=== PATIENT | female | born 1965 | race Caucasian/White ===

== ENCOUNTER 2018-08-25 23:36 | Emergency (ER) | payer OTHER, SELFPAY ==
[2018-08-25 23:37] VITALS: BP 123/69; PULSE 76; RESP 14; TEMP 36.4; O2SAT 98; BMI 27.2
--- NOTE | 2018-08-25 23:59 | EKG12_ITS ---
Test Reason : [place] Blood Pressure : / mmHG Vent. Rate : 059 BPM Atrial Rate : 059 BPM P-R Int : 152 ms QRS Dur : 090 ms QT Int : 426 ms P-R-T Axes : -02 -10 -03 degrees QTc Int : 421 ms Sinus bradycardia Minimal voltage criteria for LVH, may be normal variant Borderline ECG Confirmed by ARAVIND RIDER, JENA ([id number]), script editor TERRY DE SOUZA ([id number]) on 08/30/2018 10:37:33 AM Referred By: LEXIE Confirmed By:JENA NAZARIO MD
[2018-08-26] VITALS (15 sets, daily range): BP systolic 114–130; BP diastolic 60–80; PULSE 54–108; RESP 14–24; O2SAT 95–100
--- NOTE | 2018-08-26 00:01 | RAD_ITS ---
STUDY: X-RAY CHEST REASON FOR EXAM: Female, 52 years old. Palpitations TECHNIQUE: Single AP portable view of the chest. COMPARISON: None. FINDINGS: The lungs are clear and expanded. There is no demonstrated pleural abnormality. Normal size heart. Normal mediastinum and yong. Normal visualized pulmonary arteries. Normal visualized aortic arch and descending thoracic aorta. Normal visualized thoracic spine. Normal visualized ribs, clavicles, and shoulders. There is no demonstrated abnormality of the visualized soft tissue structures of the upper abdomen. RAD/Chest 1 View (Portable) IMPRESSION: Normal x-ray examination of the chest. Electronically Signed: Gwen Lehman MD at 1:07 EST Tel , Service support ,
[2018-08-26 00:14] LABS: Absolute Lymphocyte Count 1.69 X10^3/ul (0.83-4.51); Absolute Neutrophil Count 6.4 X10^3/uL (2.0-7.7); Basophil# 0.04 X10^3/uL; Basophil% 0.4 % (0-1); Eosinophil# 0.12 X10^3/uL; Eosinophils% 1.3 % (0-5); Hematocrit 45.4 % (37-47); Lymphocyte # 1.69 X10^3/ul (4.0); Lymphocyte % 18.8 % (19-41); Mean Corp Hgb Conc 35.2 g/gl (32-36); Mean Corpuscular Hgb 29.5 pg (27.0-32.0); Mean Corpuscular Volume 83.6 fL (81-99); Monocyte# 0.62 X10^3/uL; Monocyte% 6.9 % (0-10); Neutrophil # 6.41 X10^3/uL (2.7-7.7); Neutrophil % 71.6 % (47-70); Platelet Count 285 K/mm3 (150-450); RBC Distribution Width CV 12.4 % (11.6-14.6); RBC Distribution Width SD 37.4 fl (35.1-43.9); Red Blood Count 5.43 M/mm3 (4.2-5.4)
[2018-08-26 00:18] LABS: POSITIVE COUNT NO; POSITIVE DIFFERENTIAL NO; POSITIVE MORPHOLOGY NO
[2018-08-26 00:38] LABS: Anion Gap 9 (5-15); BUN 10 mg/dL (7-18); BUN/Creat Ratio 13.2 RATIO (10-20); Calcium,Total 9.2 mg/dL (8.5-10.1); Chloride 106 mmol/L (98-107); Creatinine, Serum 0.76 mg/dL (0.55-1.02); EST Glomerular Filtration Rate 86 mL/min (>60); Est Glom Filt Rate - Afr Amer 104 mL/min (>60); Estimated Creatinine Clearance 70.04 ml/min; Glucose 108 mg/dL (74-106); Potassium 3.5 mmol/L (3.5-5.1); Sodium Level 138 mmol/L (136-145); Thyroid Stim Hormone (TSH) 3.45 uIU/mL (0.358-3.74)
[2018-08-26 00:50] LABS: Amphetamine Urine VISTA NEGATIVE (<1000 ng/mL); Barbiturate Urine VISTA NEGATIVE (< 200 ng/mL); Benzodiazepine Urine VISTA NEGATIVE (< 200 ng/mL); Cocaine Urine VISTA NEGATIVE (< 300 ng/mL); Ecstacy Urine VISTA NEGATIVE (< 500 ng/mL); Methadone Urine VISTA NEGATIVE (< 300 ng/mL); PCP Urine VISTA NEGATIVE (< 25 ng/mL); THC Urine VISTA NEGATIVE (< 50 ng/mL); Vista UDS pH Range 6
--- NOTE | 2018-08-26 01:35 | ED.RN ---
DR OWEN INFORMED THIS NURSE THAT THE PT DOES HAVE S.I. PLAN TO TAKE ALL HER PILLS AT HOME. SINCE THE PT IS RECEIVING HELP DR OWEN AND THE COUNSELOR FROM THE COUNSELING CENTER DO NOT FEEL THE PATIENT NEEDS A SITTER IN THE ER AT THIS TIME.
--- NOTE | 2018-08-26 01:36 | ED.VISSUMM ---
- ER Visit Summary Date of Service: 08/26/18 Chief Complaint: Anxiety History of Present Illness: The patient is a 52 F who reports getting hot flashes and episodes of tachycardia since June. She rapidly tapered and stopped her Prozac at that time. She has been seen by cardiology multiple times and been seen at [facility] and by her primary care physician. She was started on metoprolol but states the medicine makes her feel crappy. She has been continuing to take it. She was recently restarted on an SSRI, but feels anxious and just wants to feel normal. She admits to suicidal ideation this morning but denied to me currently. Patient has had extensive cardiac workups performed through [facility]. Physical Examination: Vital signs unremarkable. Heart rate is 76. Patient sitting upright in bed. She is anxious and slightly disheveled. Head and neck examination unremarkable. Heart is regular rate and rhythm. Lungs sounds are clear. Abdomen is soft and nontender. Psychiatric evaluation does reveal slightly pressured speech. She denied suicidal ideation to me but does admit to earlier today. Test Results: EKG is sinus at 59 with no sign of acute ischemia. Portable chest x-ray normal. CBC significant only for hemoglobin of 16.0. Chemistry studies normal. Troponin and TSH normal. Tox and EtOH are normal. Emergency Department Course and Treatment: I spoke with Esther from the counseling center. She evaluated the patient. Patient made statements to her that she does have a plan to harm herself and states that she will take all of her medications if this continues and she does not get help. I was able to use [employer] to review the records from [facility]. I have reviewed at least 5 different visits from their emergency room in the last 5 months. Multiple visits were made with complaint of palpitation and anxiety. The highest heart rate that was documented on any visit was 116 and felt to be sinus tach secondary to her anxiety. She has had carotid studies done as well as an echocardiogram that were also reviewed. Patient was seen by Esther from the counseling center. Patient makes statements to her that she does have a plan to kill herself with the intent to take a bunch of her pills at home. Attempts are being made to get the patient placed for treatment. At this time we are waiting to hear back for insurance approval for [employer]. Treatment Plan: [] Disposition: Transfer Impression: 1. Anxiety 2. Suicidal ideation This note was generated with [employer] dictation software. It may contain incorrect words, spelling, and punctuation that were not noted in review of the chart prior to signing ED Disposition - Plan for ED Patient: Referrals: Bryson Sandhu MD [Primary Care Provider] -
--- NOTE | 2018-08-26 01:39 | ED.DCSUM_ITS ---
- ER Visit Summary Date of Service: 08/26/18 Chief Complaint: Anxiety History of Present Illness: The patient is a 52 F who reports getting hot flashes and episodes of tachycardia since June. She rapidly tapered and stopped her Prozac at that time. She has been seen by cardiology multiple times and been seen at [facility] and by her primary care physician. She was started on metoprolol but states the medicine makes her feel crappy. She has been continuing to take it. She was recently restarted on an SSRI, but feels anxious and just wants to feel normal. She admits to suicidal ideation this morning but denied to me currently. Patient has had extensive cardiac workups performed through [facility]. Physical Examination: Vital signs unremarkable. Heart rate is 76. Patient sitting upright in bed. She is anxious and slightly disheveled. Head and neck examination unremarkable. Heart is regular rate and rhythm. Lungs sounds are clear. Abdomen is soft and nontender. Psychiatric evaluation does reveal slightly pressured speech. She denied suicidal ideation to me but does admit to earlier today. Test Results: EKG is sinus at 59 with no sign of acute ischemia. Portable chest x-ray normal. CBC significant only for hemoglobin of 16.0. Chemistry studies normal. Troponin and TSH normal. Tox and EtOH are normal. Emergency Department Course and Treatment: I spoke with Esther from the counseling center. She evaluated the patient. Patient made statements to her that she does have a plan to harm herself and states that she will take all of her medications if this continues and she does not get help. I was able to use [facility] [employer] [facility] to review the records from [facility]. I have reviewed at least 5 different visits from their emergency room in the last 5 months. Multiple visits were made with complaint of palpitation and anxiety. The highest heart rate that was documented on any visit was 116 and felt to be sinus tach secondary to her anxiety. She has had carotid studies done as well as an echocardiogram that were also reviewed. Patient was seen by Esther from the counseling center. Patient makes statements to her that she does have a plan to kill herself with the intent to take a bunch of her pills at home. Attempts are being made to get the patient placed for treatment. At this time we are waiting to hear back for insurance approval for [employer]. Treatment Plan: [] Disposition: Transfer Impression: 1. Anxiety 2. Suicidal ideation This note was generated with [employer] dictation software. It may contain incorrect words, spelling, and punctuation that were not noted in review of the chart prior to signing ED Disposition - Plan for ED Patient: Referrals: Bryson Sandhu MD [Primary Care Provider] -
--- NOTE | 2018-08-26 01:57 | ED.RN ---
PT C/O ABD PAIN AND NAUSEA. PT DECLINING ANY TYPE OF MEDICATION FOR SYMPTOMS. DR OWEN NOTIFIED OF THE SAME
[2018-08-26] MEDS: Metoprolol Tartrate 25 MG Tablet PO (10:26)
--- NOTE | 2018-08-26 11:24 | ED.RN ---
RAVEN WITH CRISIS CALLED; PT HAS BEEN ACCEPTED FROM [facility]; BUT SHE HAS TO DEAL WITH A CRISIS PT AT HER OFFICE FIRST AND THEN SHE WILL CALL [facility].
--- NOTE | 2018-08-26 11:30 | CM.ED ---
SOCIAL WORK NOTE UPDATED BY NURSING, PT HAS BEEN EVALUATED BY CRISIS AND PLAN IS FOR PLACEMENT. RAVEN FROM CRISIS WORKING ON PLACEMENT AT THIS TIME. SHIVANI JARAMILLO, MINES INSPECTOR, MEN'S SWIM COACH.
--- NOTE | 2018-08-26 12:19 | ED.RN ---
[facility] ACCEPTED PT. THEY WILL CALL US SOON
--- NOTE | 2018-08-26 15:19 | ED.RN ---
PER RAVEN WE ARE WAITING FOR A ROOM AT [facility] [place]
--- NOTE | 2018-08-26 15:52 | ED.RN ---
called report to kapil.
== END 2018-08-26 17:22 ==
PROVIDERS: Emergency Provider Emergency Medicine; Family Provider Family Medicine; PCP Family Medicine
DX: R45.851 Suicidal ideations (principal); F41.9 Anxiety disorder, unspecified; I25.10 Atherosclerotic heart disease of native coronary artery without angina pectoris; Z79.899 Other long term (current) drug therapy
CPT/HCPCS: 71045; 80048; 80307; 80320; 84443; 84484; 85025; 93005; 99285; G0480

== ENCOUNTER → 2018-09-19 16:45 | Outpatient (CLI) | payer OTHER, SELFPAY ==
[2018-08-25 23:37] VITALS: BMI 27.2
--- NOTE | 2018-09-19 17:03 | MRI_ITS ---
STUDY: MRI BRAIN WITHOUT CONTRAST REASON FOR EXAM: Female, 52 years old. Dizziness TECHNIQUE: Standardized multiplanar fat and water weighted pulse sequences were obtained. COMPARISON: None. FINDINGS: The pituitary and pineal regions are normal. The brainstem is normal. The corpus callosum is normal. The 7th and 8th nerve complexes are normal. Both cerebellopontine angles are clear. The cerebellar vermis and lobes are normal. The ventricles, basal cisterns and cortical sulci are normal with no midline shift and no intra or extra-axial hemorrhage or tumor mass. There is no acute infarction. The calvarium is intact. There are no scalp swelling. The vessels at the base of the brain are normal. The orbits, paranasal sinuses and mastoid air cells are normal.. MRI/Brain without Contrast IMPRESSION: Normal unenhanced MRI of the brain. Electronically Signed: Hernando Candelario MD at 4:29 EDT Tel , Service support ,
== END ==
PROVIDERS: Family Provider Family Medicine; PCP Family Medicine; Referring Provider Otolaryngology; Visit Provider Otolaryngology
DX: R42 Dizziness and giddiness (principal)
CPT/HCPCS: 70551

== ENCOUNTER 2018-11-15 09:12 | Emergency (ER) | payer OTHER, SELFPAY ==
[2018-11-15 09:13] VITALS: BP 146/77; PULSE 87; RESP 18; TEMP 36.9; O2SAT 100; BMI 27.4
--- NOTE | 2018-11-15 09:31 | EKG12_ITS ---
Test Reason : CP/PALPS Blood Pressure : / mmHG Vent. Rate : 095 BPM Atrial Rate : 095 BPM P-R Int : 160 ms QRS Dur : 084 ms QT Int : 350 ms P-R-T Axes : 044 -14 020 degrees QTc Int : 439 ms Normal sinus rhythm with sinus arrhythmia Nonspecific ST abnormality Abnormal ECG Confirmed by CALVIN ROSE ([id number]), production editor TERRY GOSS ([id number]) on 11/18/2018 11:08:46 AM Referred By: BAM Confirmed By:CALVIN ROSE
--- NOTE | 2018-11-15 09:36 | ED.DCSUM_ITS ---
- ER Visit Summary Date of Service: 11/15/18 Chief Complaint: [Chest pain and palpitations] History of Present Illness: The patient is a 52 F [presents to the emergency department with complaint of tachycardia this morning. Patient states that she was in the shower and noted that her heart rate was over 140. Patient's been having intermittent chest discomfort over the last 2 weeks. She is been having intermittent palpitations. 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 Patient had a tilt table test ordered by her neurologist about a month ago and was relatively unremarkable. Patient has history of high cholesterol, anxiety, migraines, and depression. Patient has been under increased stress. When patient has the tachycardia she complains of nausea and shortness of breath. Patient had seen years ago a ems coordinator and at that time had been on verapamil but when she lost her insurance was unable to afford it and stopped taking it. Patient had been on metoprolol but it caused her to not feel well and increase her depression therefore she stopped taking it. She denies any chest pain currently. Patient denies recent travel or surgery. Patient denies recent illness. Patient is scheduled to see Dr. Olvin Painting later this week for a second opinion.] Physical Examination: [HEENT-PERRLA, EOMI. Cranial nerves II through XII grossly intact. TMs clear. Mucous membranes moist. No adenopathy. Cardiovascular-regular rate and rhythm without murmur or ectopy Lungs-clear to auscultation, chest wall stable without crepitus or subcu emphysema Abdomen-normoactive bowel sounds, soft, nontender, no rebound or rigidity, no peritoneal signs. Extremities-intact ?4, normal range of motion, normal pulses, atraumatic] Test Results: [EKG obtained on arrival shows sinus rhythm with a ventricular rate of 95 bpm with PACs and some nonspecific ST changes. CBC with differential is normal. Chemistries unremarkable other than a slightly depressed potassium at 3.4. Magnesium was 2.0. TSH was 2.09. D-dimer was 0.32. Troponin is less than 0.015. Chest x-ray unremarkable.] Emergency Department Course and Treatment: [Patient received a normal saline in the emergency department initially. Received aspirin.] Treatment Plan: [Discussed results with patient and she is feeling better about her visit. Patient has a scheduled appointment with cardiology next week and she would like to keep that and does not want to be admitted. I feel like her chest pain is very atypical and is been ongoing for at least 4 months and related to her palpitations. Her LYRIC risk score is a 0. I feel patient can keep her cardiology appointment and follow-up as an outpatient.] Disposition: [Discharged home in stable condition] Impression: [Atypical chest pain Palpitations] This note was generated with [employer] dictation software. It may contain incorrect words, spelling, and punctuation that were not noted in review of the chart prior to signing ED Disposition - Plan for ED Patient: Referrals: Bryson Sandhu MD [Primary Care Provider] -
--- NOTE | 2018-11-15 09:45 | RAD_ITS ---
STUDY: X-RAY CHEST REASON FOR EXAM: Female, 52 years old. Chest pain. TECHNIQUE: Single AP portable view of the chest. COMPARISON: Comparison is made with prior study dated August 26, 2018. FINDINGS: EKG electrodes are seen. The lungs are clear and expanded. There is no demonstrated pleural abnormality. Normal size heart. Normal mediastinum and yong. Normal visualized pulmonary arteries. Normal visualized aortic arch and descending thoracic aorta. Normal visualized thoracic spine. Normal visualized ribs, clavicles, and shoulders. There is no demonstrated abnormality of the visualized soft tissue structures of the upper abdomen. RAD/Chest 1 View (Portable) IMPRESSION: Normal x-ray examination of the chest. Electronically Signed: Geoffrey Joy, at 10:45 EDT , Service support ,
[2018-11-15 09:56] LABS: Absolute Lymphocyte Count 1.45 X10^3/ul (0.83-4.51); Absolute Neutrophil Count 3.9 X10^3/uL (2.0-7.7); Basophil# 0.03 X10^3/uL; Basophil% 0.5 % (0-1); Eosinophil# 0.14 X10^3/uL; Eosinophils% 2.2 % (0-5); Hematocrit 46.8 % (37-47); Hemoglobin 16.3 g/dl (12.0-15.0); Lymphocyte # 1.45 X10^3/ul (4.0); Lymphocyte % 22.9 % (19-41); Mean Corp Hgb Conc 34.8 g/gl (32-36); Mean Corpuscular Hgb 29.5 pg (27.0-32.0); Mean Corpuscular Volume 84.6 fL (81-99); Mean Platelet Vol. 9.6 fl (6.2-12.0); Monocyte# 0.74 X10^3/uL; Monocyte% 11.7 % (0-10); Neutrophil # 3.92 X10^3/uL (2.7-7.7); Neutrophil % 61.9 % (47-70); Platelet Count 254 K/mm3 (150-450); RBC Distribution Width CV 12.8 % (11.6-14.6); RBC Distribution Width SD 39.7 fl (35.1-43.9); Red Blood Count 5.53 M/mm3 (4.2-5.4); White Blood Count 6.3 K/mm3 (4.4-11.0)
[2018-11-15 09:57] LABS: POSITIVE COUNT NO; POSITIVE DIFFERENTIAL NO; POSITIVE MORPHOLOGY NO
[2018-11-15 10:10] LABS: D-Dimer Quantitative (DVT/PE) 0.32 FEU/ug/m (0.27-0.49)
[2018-11-15] MEDS: Aspirin 81 MG TAB.CHEW 324 MG PO (10:10)
[2018-11-15] MEDS: 0.9% Normal Saline 1,000 ML 150 ML IV (10:10)
[2018-11-15 10:14] VITALS: BP 132/69; PULSE 77; RESP 19; O2SAT 97; O2SAT 98
[2018-11-15 10:16] VITALS: BP 129/84; BP 132/69; BP 134/86; PULSE 71; PULSE 80; PULSE 97
[2018-11-15 10:16] LABS: Anion Gap 3 (5-15); BUN 14 mg/dL (7-18); BUN/Creat Ratio 20.1 RATIO (10-20); Calcium,Total 9.2 mg/dL (8.5-10.1); Chloride 107 mmol/L (98-107); EST Glomerular Filtration Rate 94 mL/min (>60); Est Glom Filt Rate - Afr Amer 114 mL/min (>60); Estimated Creatinine Clearance 76.04 ml/min; Glucose 107 mg/dL (74-106); Potassium 3.4 mmol/L (3.5-5.1); Sodium Level 138 mmol/L (136-145); Thyroid Stim Hormone (TSH) 2.09 uIU/mL (0.358-3.74)
--- NOTE | 2018-11-15 10:34 | ED.DEP ---
ED Disposition - Plan for ED Patient: Instructions: ED Chest Pain Atypical Unkn Cause, ED Palpitations Referrals: Bryson Sandhu MD [Primary Care Provider] - Olvin Painting MD [STAFF PHYSICIAN] - 3-5 Days
[2018-11-15 10:37] VITALS: BP 137/85; PULSE 68; RESP 17; O2SAT 98
== END 2018-11-15 11:01 | disposition home or self-care (01) ==
LOC: ED 09:40
PROVIDERS: Emergency Provider Emergency Medicine; Family Provider Family Medicine; PCP Family Medicine
DX: R07.89 Other chest pain (principal); R00.2 Palpitations
CPT/HCPCS: 71045; 80048; 83735; 84443; 84484; 85025; 85379; 93005; 99285; J7030

== ENCOUNTER 2018-12-06 09:00 | Outpatient (RCR) | payer SELFPAY ==
[2018-11-18 11:54] VITALS: BMI 25.2
--- NOTE | 2018-12-06 09:10 | BH.SGPN.GN ---
Behaviors/Verbalizations/Mental Status: [] Eye contact is good. Motor activity is appropriate. Appearance is disheveled. Speech is Appropriate. Mood is anxious. Affect is congruent. Restless Thoughts are linear and logical. No evidence of psychosis. Reviewed daily check in sheet and no reports of suicidal ideations or intent Client Response/Progress/Benefit: [] Pt spoke when prompted. Today was pt's first day in IOP and was visibly anxious AEB by restlessness. Shared with the group that she has a hx of Depression and anxiety. Stated that her goal for entering IOP to to learn how to live again. Discussed the impact that anxiety has had on her day to day functioning and how it eventually led to quitting her job. Group provided support and encouragement. No progress noted today. Will continue in IOP to improve daily functioning, decrease panic and anxiety, and prevent decompensation. Narrative Note: []
--- NOTE | 2018-12-06 10:15 | BH.SGPN.GN ---
Behaviors/Verbalizations/Mental Status: []Pt eye contact good, casually dressed, motor activity appropriate, speech normal rate and tone, mood anxious and depressed, tearful at times, congruent affect, thoughts linear and intact, no evidence of delusions or hallucinations. Client Response/Progress/Benefit: []Client was engaged in group discussion at times and listened attentively to others. Client connected with the topic and able to identify common barriers that keep people stuck from moving forward. Client identified her current reality which client described as feeling like her anxiety and depression consume her life. Client stated her anxiety and depression impact every part of my life. Stated she feels like she doesn't have control in her life. Client able to identify his personal resilience factors in her current reality such as attending therapy and having hope things can get better. Client shared her realistic, desired reality would be having increased coping skills to manage stressors, improved mood, and feeling more in control of her life. Benefited from group as client was able to identify current mental health state, resilience factors, and desired reality. Narrative Note: []
--- NOTE | 2018-12-06 11:17 | BH.SGPN.GN ---
Behaviors/Verbalizations/Mental Status: []Pt eye contact good, casually dressed, motor activity appropriate, speech normal rate and tone, mood anxious and depressed, congruent affect, thoughts linear and intact, no evidence of delusions or hallucinations. Client Response/Progress/Benefit: []Pt was a semi-active participant in group as evidenced by pt contributing at times to discussion and engaged in activity. Pt identified health anxiety, no motivation, worries about , and difficulty setting boundaries as current barriers that are keeping her from desired reality. Through experiential activity group then worked together to develop strategies to overcome various obstacles such as; reframing, reviewing positives, healthy distractions, small goals, recognizing progress, setting boundaries, adjusting expectations, and many more. Pt identified a small goal to help her get closer to desired reality is to take her medications daily and practice deep breathing. Pt seemed to benefit from increased awareness of barriers and group brainstorming healthy strategies to overcome barriers. No progress noted given today is pt's first day in IOP. Narrative Note: []
--- NOTE | 2018-12-08 09:03 | BH.SGPN.GN ---
Behaviors/Verbalizations/Mental Status: []Pt eye contact good, disheveled in appearance, motor activity restless, speech normal rate and tone, mood anxious and depressed, constricted affect, thoughts linear and intact, no evidence of delusions or hallucinations. Reviewed daily check in sheet and no reports of suicidal ideations or intent. Client Response/Progress/Benefit: []Pt was an participant in group discussion AEB pt sharing thoughts, providing feedback to others and listened attentively to peers. Emotion for today is anxious and agitated. Pt identified one mental health positive was spending time with her daughter outside. Pt identified a second mental health positive as being able to use breathing skills and positive self-talk to manage a panic attack she had last night. Pt stated last night was the first time she was able to manage the panic attack without the support of her or going to the emergency room. Pt reported she has several stressors with finding out a young girl in her community yesterday and having insurance issues. Progress noted in pt being willing to challenge her negative perspective and using healthy coping to manage her panic attack. Continued IOP tx recommended to increase utilization of healthy skills, prevent decompensation, and challenge distorted thought patterns. Narrative Note: []
--- NOTE | 2018-12-08 10:05 | BH.SGPN.GN ---
Behaviors/Verbalizations/Mental Status: [Pt alert and oriented, eye contact good, casually dressed, motor activity appropriate, speech normal rate and tone, mood anxious, dysthymic, congruent affect, thoughts linear and intact, no evidence of delusions or hallucinations.] Client Response/Progress/Benefit: [Client engaged participant as shown by contribution to discussion and helpful insight. Client participated in the discussion of the common myths about self-care including self-care is selfish, easy, makes us weak, and always fun. Client worked with group to debunk the myths about self-care. Client stated she believes self-care is essential in order to ?learn to forgive yourself like you forgive others? and increase self-compassions. Shared wanting to improve in self-care application but struggles with prioritizing it or believing she deserves it. Client seemed to benefit from increased awareness of the importance of self-care. Client showing progress as shown by continued increase in consistent use of thought challenging and calming skills. Pt will continue tx to identify and challenge distorted thoughts, increase healthy change behaviors, and prevent decompensation.] Narrative Note: []
--- NOTE | 2018-12-08 11:15 | BH.SGPN.GN ---
Behaviors/Verbalizations/Mental Status: []Client alert and oriented, casually dressed and groomed. Eye contact good. Motor activity appropriate. Speech within normal limits. Affect constricted, mood anxious. Thoughts linear, logical, no signs of hallucinations or delusions. Client Response/Progress/Benefit: []Client responded well to session, positive contributions. Client further processed the activity and shared ?you can?t drop all your responsibilities, but you need balance.? Client engaged in the discussion and self-assessment of the different areas of self-care. Client reported she can improve in areas of professional, social, and emotional self-care. Client shared in the past she has overloaded herself which led to burnout. Client reports belief that she is doing well in physical and psychological self-care. Client set a goal to improve her personal social self-care. Client?s goal is to schedule a date with a friend once this week. Client appeared to benefit from increasing awareness of how she can improve her self-care balance. Client?s first week of IOP. Client to continue to prevent decompensation and reduce anxiety.
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
--- NOTE | 2018-12-09 13:04 | BH.DR.ITP ---
Initial Treatment Plan - Patient Information Visit Information: ADMISSION DATE: EXPECTED LOS: 4-6 weeks Diagnoses:: Depression unspecified; anxiety disorder unspecified; somatic symptom disorder - Problems/Symptoms Problem #1:: depression Symptom:: low mood; hopelessness, tearfulness Problem #2:: anxiety Symptom:: overwhelmed by stress, health fears, panic symptoms Problem #3:: somatic symptom disorder Symptom:: obsessing over health worries, fear of dying; high level of anxiety about health
--- NOTE | 2018-12-09 13:31 | BH.MTP_ITS ---
Master Treatment Plan - Patient Information Program Physician:: Ian Ford Primary Therapist:: Sarah Brantley - Psychiatric Diagnoses Psychiatric Diagnoses:: Depressive disorder unspecified F33.9; anxiety disorder unspecified; somatic symptom disorder F45.1 Diagnosis Code(s):: F33.9; F45.1 - Estimated LOS Estimated LOS (in weeks):: 6 Problem/Goal #1 - Problem/Goal #1 Stated Goal:: Client will decrease depressive symptoms, isolation, and crying spells. Description of Barriers: Client reports her knowledge of the medical field is a strength and a weakness as it reinforces intrusive thoughts and worries about somatic symptoms. Additional barriers include: hopelessness, multiple medication trials, unable to take antidepressants due to her heart condition per client's report, isolative behaviors, reassurance seeking behaviors, and anger with her situation which is to be expected. Functional Impact: Client is a 53-year-old female with a history of anxiety and depression. Client reports ongoing difficulty managing her anxiety symptoms, especially regarding health conditions, which has resulted in impaired daily functioning. Client had a hospitalization in July 2018 at [facility] in [place] due to worsening symptoms. Client was referred to [facility] by her outpati ent therapist and blunger due to increased anxiety as well as decompensation of social, familial, and occupational functioning. Client currently endorses daily anxiety, panic attacks, decreased appetite, difficulty concentrating, crying spells, hopelessness, and fear of driving. Client reports she is overwhelmed with intrusive thoughts about her heart and her health. Client reports she has been isolating and researching her symptoms online which only reinforces her anxiety. Client has not been able to complete her ADLs and has not been able to function at her baseline. Client denies any suicidal ideations, but she reports feeling tired and done. Goal Relevant Strengths/Supports: Client is a kind, intelligent, and motivated woman who reports desire to improve her mental health and functioning. Client has support from her and daughter. Client reports receptiveness to homework and practicing coping skills outside of [facility]. 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 Client identified her marry as important to her. Client is established with outpatient counseling services. - Objectives Objective #1 Stated Objective: Client will learn and utilize 2-3 healthy coping strategies to better manage depressive symptoms and reduce DSM-5 symptoms for depression. Interventions: Through group and individual sessions, therapist will help client identify triggers and warning signs of depression and emotional dysregulation including emotional, physical, and behavioral changes. Therapist will teach client various coping skills to manage her symptoms. Therapist will use cognitive restructuring techniques and help client gain awareness of negative thoughts that reinforce depressive cycles. Therapist will help client incorporate mindfulness and emotional regulation skills when dealing with difficult situations. Discharge Criteria: Client will have met this goal when she can report learning and using at least 2 coping skills to manage depressive symptoms and her DSM-5 scores for depression have decreased. Target Date: 01/17/19 Review Date: 01/05/19 Status: open Objective #2 Stated Objective: Client will increase social activity to at least one additional activity per week to increase social engagement and prevent isolation. Interventions: Therapist will help client explore social connection opportunities, and process ways to get the most out of the experience. Therapist will provide education on maintenance cycles for depression and help client learn how to break unhealthy maintenance cycles and isolative behaviors. Therapist will help client identify and create SMART goals. Discharge Criteria: Client will have achieved this objective when can identify attending at least one social activity of interest weekly and report reduced isolation. Target Date: 01/17/19 Review Date: 01/05/19 Status: open Problem/Goal #2 - Problem/Goal #2 Stated Goal:: client will reduce overall frequency, intensity, and duration of anxiety and intrusive thoughts so that daily functioning is not impaired. Description of Barriers: Client reports her knowledge of the medical field is a strength and a weakness as it reinforces intrusive thoughts and worries about somatic symptoms. Additional barriers include: hopelessness, multiple medication trials, unable to take antidepressants due to her heart condition per client's report, isolative behaviors, reassurance seeking behaviors, and anger with her situation which is to be expected. Functional Impact: Client is a 53-year-old female with a history of anxiety and depression. Client reports ongoing difficulty managing her anxiety symptoms, especially regarding health conditions, which has resulted in impaired daily functioning. Client had a hospitalization in July 2018 at [facility] in [place] due to worsening symptoms. Client was referred to [facility] by her outpatient therapist and blunger due to increased anxiety as well as decompensation of social, familial, and occupational functioning. Client currently endorses daily anxiety, panic attacks, decreased appetite, difficulty concentrating, crying spells, hopelessness, and fear of driving. Client reports she is overwhelmed with intrusive thoughts about her heart and her health. Client reports she has been isolating and researching her symptoms online which only reinforces her anxiety. Client has not been able to complete her ADLs and has not been able to function at her baseline. Client denies any suicidal ideations, but she reports feeling tired and done. Goal Relevant Strengths/Supports: Client is a kind, intelligent, and motivated woman who reports desire to improve her mental health and functioning. Client has support from her and daughter. Client reports receptiveness to homework and practicing coping skills outside of IOP. 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 Client identified her marry as important to her. Client is established with outpatient counseling services. - Objectives Objective #1 Stated Objective: Client will identify 2-3 anxiety triggers and 2 coping skills to use when feeling anxious to manage anxiety as shown by preventing decompensation via maintaining current DSM-5 scores for anxiety. Interventions: Through group and individual sessions, client will gain awareness of her anxiety triggers and learn numerous techniques to manage anxiety symptoms. Therapist will mindfulness and other calming techniques to manage symptoms and increase distress tolerance skills. Discharge Criteria: Client will have met this goal if client can prevent decompensation as evidenced by stability in DSM-5 scores and when she can identify at least 2 triggers and 2 ways to cope with anxiety. Target Date: 01/17/19 Review Date: 01/05/19 Status: open Objective #2 Stated Objective: Client will identify 2-3 intrusive/ruminating thoughts and learn 2-3 strategies to overcome, replace, or reduce the value of those thoughts. Interventions: Therapist will help client increase awareness of cognitive distortions, false comfort, and myths about intrusive thoughts. Therapist will encourage client to focus on stressors in her control and teach client distress tolerance techniques. Therapist will utilize distractions, mindfulness, and CBT- based strategies to help client learn how to more effectively manage and cope with her intrusive thoughts. Therapist will use a workbook to give client homework and exercises to practice. Discharge Criteria: Client will have met this goal when can report least 2 ways to cope with intrusive thoughts that exacerbate anxiety. Target Date: 01/17/19 Review Date: 01/05/19 Status: open
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
== END 2018-12-09 23:59 ==
LOC: BHIOP 09:00
PROVIDERS: Family Provider Family Medicine; PCP Family Medicine; Referring Provider Psychiatry & Neurology Psychiatry; Visit Provider Psychiatry & Neurology Psychiatry
DX: F32.9 Major depressive disorder, single episode, unspecified (principal); F41.9 Anxiety disorder, unspecified; F45.9 Somatoform disorder, unspecified; I27.20 Pulmonary hypertension, unspecified; R45.851 Suicidal ideations; Z86.73 Personal history of transient ischemic attack (TIA), and cerebral infarction without residual deficits; Z79.899 Other long term (current) drug therapy
CPT/HCPCS: H0035; 90834; 90853

== ENCOUNTER 2018-12-08 17:50 | Emergency (ER) | payer SELFPAY ==
[2018-11-18 11:54] VITALS: BMI 25.2
[2018-12-08 17:52] VITALS: BP 133/74; PULSE 85; RESP 16; TEMP 36.6; O2SAT 100; BMI 26.9
--- NOTE | 2018-12-08 17:56 | EKG12_ITS ---
Test Reason : CP Blood Pressure : / mmHG Vent. Rate : 065 BPM Atrial Rate : 065 BPM P-R Int : 150 ms QRS Dur : 086 ms QT Int : 426 ms P-R-T Axes : 006 -09 023 degrees QTc Int : 443 ms Normal sinus rhythm Minimal voltage criteria for LVH, may be normal variant Poor R wave progression Borderline ECG Confirmed by EDI RIDER, MIN ([id number]), medical transcription editor TERRY DE SOUZA ([id number]) on 12/12/2018 1:23:23 PM Referred By: Ian Ford Confirmed By:MIN DALEY MD
--- NOTE | 2018-12-08 17:56 | RAD_ITS ---
STUDY: X-RAY CHEST REASON FOR EXAM: Female, 52 years old. Chest pain TECHNIQUE: Frontal view of the chest COMPARISON: 11/15/2018 FINDINGS: The lungs are clear. There are no pleural effusions. There is no pneumothorax. The heart is normal in size. The visualized osseous structures are within normal limits. RAD/Chest 1 View (Portable) IMPRESSION: No acute thoracic pathology. Electronically Signed: Negrito Arora, at 18:18 EDT Tel , Service support ,
[2018-12-08 18:16] LABS: Absolute Lymphocyte Count 2.38 X10^3/ul (0.83-4.51); Basophil# 0.04 X10^3/uL; Basophil% 0.6 % (0-1); Eosinophil# 0.21 X10^3/uL; Eosinophils% 2.9 % (0-5); Hematocrit 45.1 % (37-47); Hemoglobin 15.7 g/dl (12.0-15.0); Lymphocyte # 2.38 X10^3/ul (4.0); Lymphocyte % 32.8 % (19-41); Mean Corp Hgb Conc 34.8 g/gl (32-36); Mean Corpuscular Hgb 28.6 pg (27.0-32.0); Mean Corpuscular Volume 82.3 fL (81-99); Mean Platelet Vol. 9.9 fl (6.2-12.0); Monocyte# 0.56 X10^3/uL; Monocyte% 7.7 % (0-10); Neutrophil # 4.03 X10^3/uL (2.7-7.7); Neutrophil % 55.6 % (47-70); POSITIVE COUNT NO; POSITIVE DIFFERENTIAL NO; POSITIVE MORPHOLOGY NO; Platelet Count 269 K/mm3 (150-450); RBC Distribution Width CV 12.8 % (11.6-14.6); RBC Distribution Width SD 38.4 fl (35.1-43.9); Red Blood Count 5.48 M/mm3 (4.2-5.4); White Blood Count 7.3 K/mm3 (4.4-11.0)
[2018-12-08] MEDS: Aspirin 81 MG TAB.CHEW 324 MG PO (18:18)
[2018-12-08 18:19] VITALS: O2SAT 100
--- NOTE | 2018-12-08 18:20 | ED.RN ---
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
[2018-12-08 18:23] LABS: International Normalized Ratio 1.1; Prothrombin Time (Protime)PT. 14.1 SECONDS (11.7-14.9)
--- NOTE | 2018-12-08 18:27 | ED.VIS.GEN ---
History of Present Illness Chief Complaint: Chest Pain Informant: Patient Onset: Today - 1600 Current Severity: Mild Narrative: Presents from PCP office for chest pain starting at 4 PM 2 hours prior to arrival. States it just hurts. No radicular symptoms. No nausea. Is nonproductive cough. States had left hand swelling that time saw her PCP secondary to being on amoxicillin for sinus treatment. This was stopped. History of pulmonary hypertension and tachycardia on medications. History of hypercholesterolemia no diabetes. Denies tobacco history. Denies family history of MIs at young age. No history of recent travel, surgeries, or immobilizations. No history of PE or DVT. States current symptoms is a 3. Prior similar symptoms: No Past Medical History - Allergies and Home Meds Allergies/Adverse Reactions: Allergies codeine Allergy (Verified 11/18/18 08:04) Nausea olanzapine [From Zyprexa] Allergy (Verified 11/18/18 08:04) Swelling metoprolol Adverse Reaction (Verified 11/18/18 08:04) Other promethazine [From Phenergan] Adverse Reaction (Verified 11/18/18 08:04) Other Primary Care Physician: Bryson Sandhu MD [Primary Care Provider] - Smoking Status: Never smoker Review of Systems General: Denies: Chills, Fever, Sweats Eyes: Denies: Visual changes - bilaterally, Diplopia ENT: Denies: Rhinorrhea, Sore throat Cardiovascular: Reports: Chest pain. Denies: Palpitations Respiratory: Reports: Cough. Denies: Dyspnea, Dyspnea on exertion Gastrointestinal: Denies: Abdominal pain, Nausea, Vomiting, Diarrhea, Melena, Hematochezia Genitourinary: Denies: Dysuria, Hematuria, Frequency Musculoskeletal: Denies: Back pain, Extremity Pain Skin: Denies: Rash, Wounds Neurological: Denies: Headache, Weakness, Numbness Physical Exam Vital Signs/Narrative: Vital Signs Temp Pulse Resp BP Pulse Ox 12/08/18 18:19 100 12/08/18 17:52 97.8 F 85 16 133/74 H 100 Inital Vital Signs reviewed: Yes General: Well nourished, Well developed, No Acute Distress Head: Normocephalic, Atraumatic Eyes: Perrl, EOMI ENT: Moist mucous membranes, No rhinorrhea Neck: Supple, Nontender Cardiovascular: Regular rate, Regular rhythm, No murmurs Respiratory: No distress, CTA bilaterally, Chest nontender Abdomen: Soft, Nontender, Nondistended, Normal bowel sounds Back: Nontender, Normal Inspection Extremities: Nontender, No edema Skin: Normal color, No rash Neurological: Alert, Oriented x3, Cranial nerves II-XII grossly intact, Normal Strength, Normal Sensation Psychological: Normal affect, Normal Mood Diagnostic/Tx/Re-eval Chest X-Ray - ED: 1 View, Read by Radiologist, Normal Abnormal Lab Results 12/08/18 12/08/18 12/08/18 18:09 18:09 18:09 WBC 7.3 RBC 5.48 H Hgb 15.7 H Hct 45.1 MCV 82.3 MCH 28.6 MCHC 34.8 RDW 12.8 RDW Differential 38.4 Plt Count 269 MPV 9.9 Immature Gran % (Auto) 0.400 Neut % (Auto) 55.6 Lymph % (Auto) 32.8 [place] % (Auto) 7.7 Eos % (Auto) 2.9 Baso % (Auto) 0.6 Absolute Neuts (auto) 4.0 Absolute Lymphs (auto) 2.38 Total Counted Not Reportable PT 14.1 INR 1.1 Sodium 139 Potassium 3.7 Chloride 106 Carbon Dioxide 25.0 Anion Gap 8 BUN 13 Creatinine 0.71 Estim Creat Clear Calc 74.97 Est GFR (MDRD) Af Amer 111 Est GFR (MDRD) Non-Af 92 BUN/Creatinine Ratio 18.2 Glucose 92 Calcium 9.4 Troponin I < 0.015 12/08/18 21:00 WBC RBC Hgb Hct MCV MCH MCHC RDW RDW Differential Plt Count MPV Immature Gran % (Auto) Neut % (Auto) Lymph % (Auto) [place] % (Auto) Eos % (Auto) Baso % (Auto) Absolute Neuts (auto) Absolute Lymphs (auto) Total Counted PT INR Sodium Potassium Chloride Carbon Dioxide Anion Gap BUN Creatinine Estim Creat Clear Calc Est GFR (MDRD) Af Amer Est GFR (MDRD) Non-Af BUN/Creatinine Ratio Glucose Calcium Troponin I < 0.015 - EKG Initial EKG Interpretation: Sinus Rhythm, - - Sinus rate of 65, no ST changes. Isolated T wave inversion in leads III. - Medical Decision Making Patient vital signs stable EKG with no acute process. Cardiac work-up negative. LYRIC score of 1. Patient's heart score is a 2. Heart guideline pathway discussed. Results. She stayed for repeat 3-hour troponin which returned negative. Patient symptoms resolved. She is given aspirin in the ED. She will follow-up as an outpatient for reevaluation. All questions were answered. ED Disposition - Plan for ED Patient: Disposition: Home or Assisted Living Diagnosis: Chest pain Instructions: ED Chest Pain Atypical Unkn Cause Referrals: Bryson Sandhu MD [Primary Care Provider] - 3-5 Days
[2018-12-08 18:31] LABS: Anion Gap 8 (5-15); BUN 13 mg/dL (7-18); BUN/Creat Ratio 18.2 RATIO (10-20); Calcium,Total 9.4 mg/dL (8.5-10.1); Chloride 106 mmol/L (98-107); Creatinine, Serum 0.71 mg/dL (0.55-1.02); EST Glomerular Filtration Rate 92 mL/min (>60); Est Glom Filt Rate - Afr Amer 111 mL/min (>60); Estimated Creatinine Clearance 74.97 ml/min; Glucose 92 mg/dL (74-106); Potassium 3.7 mmol/L (3.5-5.1); Sodium Level 139 mmol/L (136-145)
[2018-12-08 19:00] VITALS: BP 132/73; PULSE 58; RESP 18; O2SAT 98
[2018-12-08 20:00] VITALS: BP 128/80; PULSE 86; RESP 16; O2SAT 95
[2018-12-08 21:00] VITALS: BP 124/78; PULSE 75; RESP 16; O2SAT 97
[2018-12-08 22:33] VITALS: BP 125/86; RESP 16
== END 2018-12-08 22:34 | disposition home or self-care (01) ==
PROVIDERS: Emergency Provider Emergency Medicine; Family Provider Family Medicine; PCP Family Medicine
DX: R07.9 Chest pain, unspecified (principal); I27.20 Pulmonary hypertension, unspecified; E78.00 Pure hypercholesterolemia, unspecified; Z79.899 Other long term (current) drug therapy
CPT/HCPCS: 71045; 80048; 84484; 85025; 85610; 93005; 99284; A4216

== ENCOUNTER 2018-12-13 09:00 | Outpatient (RCR) | payer OTHER, SELFPAY ==
[2018-12-10 01:29] VITALS: BMI 25.2
--- NOTE | 2018-12-13 09:06 | BH.SGPN.GN ---
Behaviors/Verbalizations/Mental Status: [Eye contact is good. Motor activity is appropriate, at times appearing restless. Appearance is casual. Speech is pressured. Mood is agitated, anxious, depressed. Affect is full. Thoughts are linear and logical. No evidence of psychosis. Reviewed daily check in sheet and no reports of suicidal ideations or intent.] Client Response/Progress/Benefit: [Pt was an active participant during group discussion, however struggled with significant negative thoughts throughout discussion. She appeared resistant to group efforts at challenging pt negative thoughts and indicated being ?fed up? with struggling with anxiety. Noted this is her major stress and has resulted in increased agitation and anger at the world and lack of understanding from others. Pt continued to discuss that although she is in a negative mood today she is proud of her ability to utilize the GERARDO text line when experiencing panic sx on previous date rather than going to the E.R. immediately. Pt progress noted in ability to identify positives regardless of significant stressors and feelings of agitations. Appeared to benefit from group support and others connecting with pt frustrations. Pt to continue in IOP to continue to promote emotion regulation, improve anxiety management and distress tolerance skills, and prevent decompensation.] Narrative Note: []
--- NOTE | 2018-12-13 10:12 | BH.SGPN.GN ---
Behaviors/Verbalizations/Mental Status: []Client alert and oriented, casually dressed and groomed. Eye contact good. Motor activity appropriate. Speech within normal limits. Affect congruent, mood anxious. Thoughts linear, logical, no signs of hallucinations or delusions. Client Response/Progress/Benefit: []Client was an active participant in group discussion and activity. Along with the group, client identified the benefits to communicating emotions which included; getting through every day stressors, functioning at work, preventing worsening physical and mental symptoms, expressing oneself, and setting boundaries. Group identified the challenges to communicating emotions during stressful situations which included; ?foggy brain,? ?verbal vomit,? avoidance, bottling up feelings, self-sabotage, lack of understanding, ?going off? on people, and negative thinking. Attentive during psychoeducation on how emotions impact thoughts and behaviors. Client engaged in activity and reported feeling anxiety while participating. Client shared she was able to work through her anxiety by focusing on her role and making light of the situation. Benefited from insight and awareness of the impact of emotions on communication and the importance of communication in stressful situations. Will continue in IOP to prevent decompensation and increase distress tolerance skills.
--- NOTE | 2018-12-14 10:25 | BH.SGPN.GN ---
Behaviors/Verbalizations/Mental Status: [Client alert and oriented, casually dressed. Eye contact good. Motor activity WNL. Speech appropriate rate/tone. Affect congruent, mood dysthymic and anxious. Thoughts linear, logical, no signs of hallucinations or delusions.?] Client Response/Progress/Benefit: [Pt attentive and an actively engaged participant throughout. She appeared more positive and displayed progress in ability to identify ways to connect materials discussed to her own mental health. Pt able to contribute to group discussion on factors that influence personal perspective. Identified mental health and communication issues can have impacts on personal outlook and mindset. Pt benefited from connecting how perspective can impact mental health and wellness, noting that negative mindset can led to feeling unworthy or second-guessing self, whereas positive outlooks can improve confidence and hope. Pt listening as group worked to identify strategies for challenging and improving perspective. Reports wanting to utilize personal supports as a means of promoting a more positive perspective. Pt recommended to continue in IOP tx to prevent decompensation, decrease sx of anxiety and depression, and promote change behaviors. ] Narrative Note: []
--- NOTE | 2018-12-14 11:26 | BH.SGPN.GN ---
Behaviors/Verbalizations/Mental Status: []Client alert and oriented, casually dressed and groomed. Eye contact good. Motor activity appropriate. Speech within normal limits. Affect flat, mood depressed, anxious. Thoughts linear, logical, no signs of hallucinations or delusions. Client Response/Progress/Benefit: []Client responded well to session, attentive and contributing to discussion. Client attentive and took notes as the group discussed the impact perspective has on one?s ability to recognize and utilize strengths. The group identified that a negative perspective causes people to minimize strengths, have low self-esteem, and disqualify positives. Client able to identify personal strengths she possesses including: kindness, sense of humor, common sense, persistence, and helpfulness. Client stated she does not always recognize these strengths due to feeling anxious, negative thinking, and disqualifying positives. Client helped the group identify strategies to make strengths easier to access. Some of these strategies included: looking at the big picture, awareness of distortions, keeping track of wins, and looking at the evidence against negative thoughts. Benefited from acknowledging personal strengths and coming up with strategies to access her strengths. Client demonstrating progress as her affect and mood have improved since yesterday. Client to continue IOP as she continues to struggle with intrusive thinking, anxiety, and difficulty regulating her emotions.
--- NOTE | 2018-12-15 07:38 | BH.MDN_ITS ---
Multi-Disciplinary Note - Note 45-min Individual Time Started:: 12:12 Date: 12/13/18 Purpose of session/treatment goals addressed:: The purpose of this session was to address client's current symptoms, stressors, and intrusive thoughts. Another goal was to help client gain further insight of her intrusive thinking and practice in the moment coping skills. Eye Contact:: Good Motor Activity:: Appropriate Appearance:: Casual Speech:: Tangential Mood:: Anxious, Depressed Affect:: Congruent - tearful Thoughts:: Racing, Circular, No evidence of hallucinations/delusions noted Staff Interventions:: Therapist used open-ended questions and active listening while providing a safe space for client to process and verbalize her emotions, symptoms, and stressors. Therapist provided further psychoeducation on anxiety and intrusive thoughts to normalize client's experience and began utilizing effective interventions. 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 Therapist assisted client in setting a small goal for the week to practice self-talk and avoid researching side effects which further reinforces anxiety. Therapist gave client a handout on intrusive thinking. Client Response:: Client responded well to session, open to meeting with therapist. Client was tearful and reporting hopelessness at the beginning of session due to frustration of anxiety symptoms. Client shared I'd take depression over anxiety any day. Client stated her increased anxiety symptoms are due to client starting a new heart medication today. Client shared she researched the medication online and began having intrusive thoughts about the side effects. Client acknowledges that researching only further reinforces her anxiety and intrusive thinking. Client connected with the concept of false comfort and how reassurance seeking can fuel anxiety. Therapist encouraged client to reduce her researching and practice mindfulness and distraction strategies instead. Client read about intrusive thoughts for homework and connected with today's session topic of how intrusive thoughts are formed and how to work through them. Client willing to practice distress tolerance skills during session. Client became anxious while practicing, but she was able to use progressive muscle relaxation and self-talk to work through her anxiety. Client reported she is willing to practice the self-talk statements for homework such as a thought is a thought and I'm feeling anxious right now, but I'm safe and will get through this. Risks/Concerns:: Client reported yesterday she had thoughts of taking all her Xanax during crisis. Client stated I would never really do that and that she does not want to kill herself. Client denies any active suicidal ideations, plan, and intent as of 12/13/18. Protective factors include family and marry. Progress Toward Goals/Plan:: Client's second week of IOP, limited progress noted. Client shared this weekend and yesterday were ?terrible days.? Client endorses a depressed mood, crying spells, hopelessness, intrusive thoughts about her health, anxiety, and passive thoughts of . Client?s anxiety is currently heightened because she is going to be starting a new heart medication. Client did well to practice in the moment coping skills and during session showed reduced anxiety which shows progress. Client continues to be receptive to working on managing her intrusive thoughts to reduce health anxiety. Client to practice skills discussed during session today for homework. Client to continue IOP to prevent decompensation, reduce anxiety, and help client return to her baseline. Time Stopped:: 13:00
--- NOTE | 2018-12-16 09:00 | BH.SGPN.GN ---
Behaviors/Verbalizations/Mental Status: [] Eye contact is poor. Motor activity is appropriate. Appearance is casual. Speech is Appropriate. Mood is anxious. Affect is congruent. Thoughts are linear and logical. No evidence of psychosis. Reviewed daily check in sheet and no reports of suicidal ideations. Client Response/Progress/Benefit: [] Pt was an active participant in group discussion. Emotion for today is anxious. Shared with the group that she went on a walk yesterday and spent a majority of her time outside. Also did not isolate as much. Reports making a conscious effort and was proactive in addressing her anxiety. It was nice not to hide from people. Continues to have difficult time challenging her medical anxiety. Still does not feel comfortable driving as well due to her anxiety. She has a friend drive her here however reports distress as friend continues to discuss health concerns for herself and others. This triggers pt's anxiety. She reports she has attempted to set boundaries on conversations however feels like she is ungrateful as friend is helping her out. Group challenged these beliefs and provided feedback on making and maintaining boundaries. Benefited from group support, encouragement, and feedback. Progress noted per pt report. Will continue with IOP to prevent decompensation, decrease anxiety and isolation, and improve daily functioning to return to work. Narrative Note: []
--- NOTE | 2018-12-16 10:10 | BH.SGPN.GN ---
Behaviors/Verbalizations/Mental Status: []Client alert and oriented, casually dressed and groomed. Eye contact good. Motor activity appropriate. Speech within normal limits. Affect congruent, mood euthymic. Thoughts linear, logical, no signs of hallucinations or delusions. Client Response/Progress/Benefit: []Client participated in group discussion and worksheet activity. Worked together with the group to define a crisis and discuss examples of crisis situations. Client helped the group explore how coping with crisis in unhealthy ways can lead to worsening mental health symptoms. Client stated she used to manage personal crises by ?just pushing through? which resulted in client feeling more anxious and depressed. Group identified warning signs one could have during a crisis which included; racing thoughts, increased energy, self-harm, apathy, uncontrollable worries, isolation, and difficulty concentrating. Client completed her own personal warning signs worksheet. Client identified her top three crisis warning signs to be uncontrollable worries, crying spells, and sleeping more than usual. Benefited from group by increasing awareness of crisis and personal warning signs. Progress noted as client reports increased self-awareness, but she continues to struggle with managing intrusive thinking and healthy anxiety.
--- NOTE | 2018-12-16 11:48 | BH.NA_ITS ---
Physical Data - Height/Weight Height: 1.57 m Weight:: 64.864 kg Weight in Pounds: 143.0 lbs Current Medication Compliance - Medication Compliance Do you take your medication as prescribed?: Yes Do you need assistance with taking medication?: No Have you had side effects from medication?: Yes Nutritional History - Appetite Nutritional Instructions:: If client shows signs of a swallowing problem, weight change of 10 pounds or more in the last month, or is on a diabetic diet, the physician will review and request a dietitian consult, as appropriate. All unintentional weight loss will be referred to the physician for decision on need for dietitian consult. Describe your appetite:: Good Have you noticed a change in your eating habits lately?: No Functional Assessment - Sleep Pattern Describe any problems with sleeping: Client notes some difficulty with falling and staying asleep chronically, but worse recently due to rumination. - Activities Motor Activity:: Functional Sensory/Communication Assess - Dental Problems Do you have any dental problems?: None - Vision Problems Do you have any vision problems?: Glasses - Hearing Problems Do you have any hearing problems?: Adequate - Communication Problems Do you have difficulty understanding what people are saying?: No Do you have trouble putting your thoughts into words or expressing what you want to say?: No Do people ever have trouble understanding what you say?: No What is your primary language?: Serbian Learning Assessment - Education What is your level of education?: Some College - Learning Barriers Learning Barriers:: Ready to learn Medical Problems/History - Pain Assessment Do you have acute or chronic pain?: Yes - Female Reproductive Do you think you may be ?: No Number of pregnancies:: 4 Number of children:: 3 Have you reached menopause?: Yes Do you have any history of breast disease?: No :: 1 - SAB - Additional History Additional comments:: see PMHx and surgical Hx in Summary Substance Abuse - Substance Abuse Please describe substance abuse in the last 30 days:: Client denies tobacco use, ETOH use, or illicit substance use. Mental Status Summary - Mental Status Significant Findings/Observations on Appearance and Mood:: Tiffanie is A&Ox4 and cooperative with interview. Normal activity. Steady gait. Poor hygiene and grooming as noted by unclean hair, casually dressed. Speech is clear and of normal rate and volume; she is very talkative. Moderate anxiety. Mood congruent affect. Client perseverates on her medical illness. [place] thinking. Fair knowledge and limited insight. No symptoms of delusions. Denies hallucinations, SI, and HI. Fair attention and concentration. Suicide Assessment - Suicidal Ideation Are you currently or have you been suicidal in the past?: Yes Suicidal Intentional Rating Scale (SIRS): Suicidal thoughts (past) Physician Notification: If Active suicidal thoughts/Will not contract for safety is checked, contact physician and document in the Physician Notification section below. Assault History/Potential - History of Assault Do you have a history of assaulting someone?: No Physician Notification: If yes, notify physician and document notification date and time below. Past Psychiatric History - MH Treatment Hx Past Psychiatric Medications:: Zyprexa ECT Therapy Details:: N/A Describe (age, circumstance, etc) any past hospitalizations: Jul 2018: [facility] in [place] Fall Risk Assessment - Age Age: Less than 60 - Mental Status Mental Status: Willing & able to ask for assistance when needed - Physical Status Physical Status: No problems - Impairments Impairments: None - Elimination Elimination: Continent AND independent - Gait or Balance Gait or Balance: Walks independently - Hx of Falls History of falls in the past 6 months: No known history - Medications/Substances Psychotropics:: Anxiolytics (e.g. benzodiazepines) Others:: Antihypertensives Medications/substances used within the past 24 hours or ordered to administer: 1-2 of the medications/substances listed above - Total Score Total Points:: 1 RN Summary of Impressions - Impressions Recommendations: Include psychiatric and medical issues, treatment planning recommendations, and discharge planning needs. 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 Impression: General Medical Conditions: pulm HTN, fibro, migraines, GERD - Level of Care How do the client's current symptoms and functional deficits support need for this level of care?: Tiffanie presents to [facility] with severe medical anxiety, mostly related to some cardiac issues, both percieved and actual. She has been having daily panic attacks and is fearful of driving. 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 Client also endorses isolation and avoidance, all of which have left her unable to work. She has nearly constant rumination about her palpitations throughout the day and some at night that have caused her to have difficulty falling asleep most nights. She displays a lack of skills and, currently, the inability to rationalize. IOP will provide social support, skills training, and medication management to promote gains and prevent further decompensation.
--- NOTE | 2018-12-19 09:05 | BH.SGPN.GN ---
Behaviors/Verbalizations/Mental Status: []Client alert and oriented, neatly dressed and groomed. Eye contact good. Motor activity appropriate. Speech appropriate. Affect constricted, mood anxious. Thoughts linear, logical, no signs of hallucinations or delusions. Reviewed client?s symptom tracker, no risk for suicidal ideations, plan, or intent as of 12/19/18. Client Response/Progress/Benefit: []Client responded well to session, providing supportive statements to peers. Client reports feeling ?anxious, but it?s controllable? today. Client reports she continues to struggle with managing her anxiety at night and she has anxious thoughts throughout the day. However, client shared she has been working on applying coping skills to manage her symptoms. Client?s mental health wins include spending the night with her daughter and having a relaxing day yesterday. Client shared she had some anxiety over the weekend, but client has been working on ?accepting it and letting go.? Client appeared to benefit from reflecting on her application of coping skills. Progress noted in increased ability to manage anxiety. Client to continue IOP as she can further reduce anxious thoughts and symptoms in order to promote mood stability.
--- NOTE | 2018-12-19 10:20 | BH.SGPN.GN ---
Behaviors/Verbalizations/Mental Status: [] Eye contact is good. Motor activity is appropriate. Appearance is disheveled. Speech is Appropriate. Mood is anxious. Affect is congruent. Thoughts are linear and logical. No evidence of psychosis. Client Response/Progress/Benefit: [] Pt was an active participant in group discussion and activity. Processed quote of the day with peers. Group worked together to identify barriers to making changes or taking action in their lives which included; lack of self-awareness, old habits, one's mindset, fear of failure, negative emotions (depression, anxiety, etc..), lack of resources, and other people. Group also identified that benefits of change which included; improved relationships, increased communication, improved mental wellness, increased confidence, and feelings of accomplishment. Discussion on the costs of not taking action or making changes which included; being stuck, no growth, lose friendships, impairs functioning, and not changes is a form of self-sabotage. Pt attentive during psychoeducation on the zones of change. Benefited from group through awareness of barriers and benefits to taking action towards mental wellness. Narrative Note: []
--- NOTE | 2018-12-20 10:20 | BH.SGPN.GN ---
Behaviors/Verbalizations/Mental Status: [] Eye contact is good. Motor activity is appropriate. Appearance is casual. Speech is Appropriate. Mood is anxious. Affect is congruent. Thoughts are linear and logical. No evidence of psychosis. Client Response/Progress/Benefit: [] Pt was an active participant in group discussion. Processed quote of the day with peers. Group discussed the MH benefits to having open and clear communication with support and providers which included; it avoids mind-reading, decreases chances of confusion, helps us get our needs met, helps us get our goals met, helps us manage our symptoms (as support understands appropriate responses). Group also discussed the barriers that tend to impact clear and open communication which include; depression, anxiety, fear, embarrassment, pride, guilt, negative thoughts, feeling that if others know who we truly are they will not like us, and being vulnerable. Pt was attentive during psycho-education on communications styles (aggressive, passive, passive-aggressive, and assertive). Also provided input on the pros and cons to each communication style. Narrative Note: []
--- NOTE | 2018-12-20 11:15 | BH.SGPN.GN ---
Behaviors/Verbalizations/Mental Status: []Client alert and oriented, casually dressed and groomed. Eye contact good. Motor activity appropriate. Speech tangential, engaging in side conversations at times. Affect congruent, mood anxious. Thoughts linear, logical, no signs of hallucinations or delusions. Client Response/Progress/Benefit: []Client active participant AEB providing input throughout and attentive to others. Client engaging in side conversations at times. Client reported she is a passive communicator at work ?I always say yes? and an aggressive communicator at home. Client reported ?by the time I got home from work I had nothing left.? Client shared her communication styles have worsened her mental health symptoms and negatively impacted her relationships. Client engaged in activity and able to connect how ineffective communication negatively impacts mental health and relationships. Client identified her communication goal which is to talk with her supports in a calmer way. Client seemed to benefit from increased insight into how her communication style impacts her mental health and relationships. Client progressing in generalizing healthy coping skills, but she continues to struggle with managing anxiety.
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
--- NOTE | 2018-12-23 10:15 | BH.SGPN.GN ---
Behaviors/Verbalizations/Mental Status: []Client alert and oriented, casually dressed and groomed. Eye contact good. Motor activity appropriate. Speech within normal limits. Affect constricted, mood anxious. Thoughts linear, logical, no signs of hallucinations or delusions. Client Response/Progress/Benefit: []Client responded well to session, attentive and engaged throughout. Client commented on the quote and shared to overcome anxiety one must face anxious situations. Client able to provide input to different types of anxiety disorders as well as the difference between ?normal? anxiety and anxiety disorders. Client helped the group identify examples of the various ways anxiety manifests and symptoms associated with thoughts, physical symptoms, and safety behaviors. Client gained awareness of her physical symptoms which included: heightened senses, feeling jittery, increased heart rate and heart palpitations, and feeling ?like I?m being zapped with lightening.? Client also identified safety behaviors she has engaged in that provide short term relief but increase anxiety over time. Client?s safety behaviors included: reassurance seeking, going to the ER, avoidance, googling symptoms, and isolation. Client appeared to benefit from gaining insight to her safety behaviors and how her anxiety manifests itself. Client progressing as she reports reduced engagement in safety behaviors and application of mindfulness skills. Client to continue IOP as she continues to struggle with maintaining mood stability and managing intrusive thoughts.
--- NOTE | 2018-12-26 09:05 | BH.SGPN.GN ---
Behaviors/Verbalizations/Mental Status: [Eye contact is fair to good. Motor activity is appropriate. Appearance is casual. Speech is Appropriate, at times appearing more pressured in nature. Mood is agitated, anxious, dysthymic. Affect is congruent. Thoughts are linear and logical, evidence of rumination. No evidence of psychosis. Reviewed daily check in sheet and no reports of suicidal ideations or intent.] Client Response/Progress/Benefit: [Pt was attentive in group discussion, providing some feedback despite apparent agitation. Emotions for today is tired/out of it and indicated that she is emotionally drained due to experiencing migraine headaches at various points throughout the weekend. Pt reports that she failed to use her healthy skills to manage anxiety related to health sx, though did well to recognize what skills may be helpful next time she experiences similar sx. Pt noted a current mental health win as being able to spend time with family over weekend and take breaks as needed. Current stressor includes ongoing health anxiety. Benefited from support provided by the group and ability to vent frustrations. Will continue in IOP to reduce anxiety, improve consistent skill application, and prevent decompensation.] Narrative Note: []
--- NOTE | 2018-12-26 10:15 | BH.SGPN.GN ---
Behaviors/Verbalizations/Mental Status: []Client alert and oriented, casually dressed and groomed. Eye contact good. Motor activity appropriate. Speech within normal limits. Affect congruent, mood euthymic. Thoughts linear, logical, no signs of hallucinations or delusions. Client Response/Progress/Benefit: []Client responded well to session, positive contributions and engaged in activity. Client appeared to connect with the topic of personal pitfalls and how they can prevent mental health progress. Client agreed with peers that overcoming pitfalls is not easy, but it is possible. Client identified examples of pitfalls such as negative thinking, not using coping skills, and isolation. Client reported to get on the ?right path? and overcome pitfalls, one needs self-awareness. Client participated in the group activity and reported ability to manage her emotions by breathing and self-talk statements. Client agreed with peers that the group did better when they used communication and reminded themselves to go slowly. Client appeared to benefit from increasing self-awareness and applying in the moment coping. Client reports increased ease in applying coping skills and she has been able to reduce the duration of her anxiety. Client continues to struggle with intrusive thinking and can benefit from further reducing anxiety.
--- NOTE | 2018-12-28 09:33 | BH.MDN ---
Multi-Disciplinary Note - Note 30-min Individual Time Started:: 09:10 Date: 12/28/18 Purpose of session/treatment goals addressed:: The purpose of this session was to address and process client's distressing emotions and deescalate symptoms so client can return to group. Another goal was to address client's presenting medical issues and refer to ER if necessary. Eye Contact:: Good Motor Activity:: Restless Appearance:: Casual Speech:: Rapid, Other - circumstantial Mood:: Anxious, Irritable, Dysthymic Affect:: Congruent - tearful Thoughts:: Racing, Circular, No evidence of hallucinations/delusions noted Staff Interventions:: Therapist used active listening and open-ended questions to explore client's current symptoms and stressors. Therapist provided client a safe place to verbalize and process her emotions. Therapist provided emotional support and encouraged client to seek ER care if appropriate for her migraine symptoms. Therapist used calming strategies to deescalate client's anxiety symptoms. Therapist used cognitive restructuring to help client gain awareness of distortions and challenge negative thoughts. Therapist used DBT techniques to increase client's insight to discrepancies and provide hope. Therapist used strengths perspective to empower client and instill confidence. Client Response:: Client entered session tearful and in a crisis state. Client shared she has had a migraine since Wednesday and reported belief whenever I have this many something is medically wrong. Therapist attempted to help client challenge distorted thoughts, but client shared I don't want to see a different perspective. Client shared she feels frustrated, exhausted, and hopeless that she will overcome her symptoms and anxiety. Client stated, I don't live I exist. Client receptive to emotional support provided by therapist and calming strategies. Client reported belief she does not need to go to the ER at this time and she stated ability to return to group. Client shared she wants to keep to myself and withdraw from peers today during group. Receptive to therapist feedback that withdrawing during group may further reinforce negative thoughts and emotions. Client shared belief that I will never get better or be able to enjoy life. Receptive to thought challenging by therapist and reframed this thought to it will be hard, but I can. Client left session with reduced anxiety symptoms and was no longer in crisis. Risks/Concerns:: Client reports passive thoughts of including If I were to go right now that would be okay. Client denies any suicidal ideations, plan, or intent as of 12/28/18. Client reports I can't have suicidal thoughts and that her family and marry are her reasons for living. Client reports ability to maintain safety. Physiologically, client reports a migraine and difficulty seeing. Client was encouraged to seek care at the ER and call her should her symptoms begin to worsen. Client reported I want to stay and reported belief she would be able to benefit from group today. Progress Toward Goals/Plan:: Client has demonstrated progress towards her treatment goals, but she recently presents with a regression in symptoms which were potentially triggered by increased migraines. Client reports she is having a hard time balancing and seeing. Therapist encouraged client to go to the ER, but client declined needing ER care. Client currently endorses crying spells, somatic anxiety symptoms, wishes of , low energy, hopelessness, and a depressed mood. Client receptive to gentle thought challenging and wants to return to group. Client to continue IOP to prevent further decompensation and increase mood stability. Time Stopped:: 09:30
--- NOTE | 2018-12-28 11:15 | BH.COMM_ITS ---
Communication Note - Communication with Client Communication Note: Pt left group reporting that she was feeling dizzy. Reports that she has also had a migraine since 12/25/18. Her integrity assessor and nuerologist are aware. Pt beleives this could be related to medication changes. She was agreeable to going to the ER.
--- NOTE | 2018-12-30 09:05 | BH.SGPN.GN ---
Behaviors/Verbalizations/Mental Status: []Client alert and oriented, disheveled appearance. Eye contact good. Motor activity appropriate. Speech loud, interrupting peers at times. Affect congruent-tearful at times, mood irritable, anxious, dysthymic. Thoughts linear, logical, no signs of hallucinations or delusions. Reviewed client?s symptom tracker. Client marked 3/5 for suicidal thoughts and 1/5 for risk. Client reports ability to maintain safety as of 12/30/18. Therapist to follow up with client to further assess risk. Client Response/Progress/Benefit: []Client responded mostly well to session, engaged but at times disqualifying coping skills group members shared with her. Client reports feeling ?anxious? today and reported that she has been having a ?terrible? week. Client shared she has been struggling to manage her anxiety and she has been experiencing migraines. Client stated she is also stressed because ?nights and weekends are bad.? The group attempted to help client challenge distortions and identify coping skills. Client disqualified some of the comments, stating why these coping skills will not work for her. Client able to identify mental health wins to be getting out of her house yesterday and going on a drive. Client shared going for car rides helps her feel calm. Client appeared to benefit from attending group today instead of isolating. Client has shown progress towards her treatment goals, but currently reports a regression in anxiety symptoms. Client to continue IOP to prevent further decompensation and increase symptom management.
--- NOTE | 2018-12-30 10:15 | BH.SGPN.GN ---
Behaviors/Verbalizations/Mental Status: [Eye contact is fair, appearing avoidant. Motor activity is appropriate. Appearance is casual. Speech is Appropriate, though minimal input provided. Mood is depressed, agitated, distracted. Affect is constricted, congruent with mood. Thoughts are consistent with rumination. No evidence of psychosis.] Client Response/Progress/Benefit: [Pt receptive of session and willing to listen throughout discussion on resilience and factors that contribute to development of a resilient lifestyle. Although pt actively listening and taking notes, she did not provide input to the discussion and opted out of participating in the group activity. Pt limited engagement in group may be due to ongoing difficulties in managing intrusive thoughts which decrease ability to focus and increase hopelessness. Pt appeared to benefit from group discussion on strategies for developing and promoting a resilient lifestyle. This was further evidenced by nodding on some occasions and continuing to take notes throughout. Pt progress continues to be inconsistent due to aforementioned anxiety and intrusive thinking. Recommended continued IOP tx to prevent decompensation, continue to work on application of distress tolerance and anxiety management skills, as well as reduce mental health symptoms.] Narrative Note: []
--- NOTE | 2018-12-30 10:44 | PN_ITS ---
Progress Note Chief Complaint: The patient is a 53-year old female who is an active participant in the intensive outpatient mental treatment program at [facility]. She has a history of depression, anxiety and somatic symptom disorder. History of Present Illness: Patient describes herself as not good. She has continued to feel depressed and anxious. She said that anxiety tends to worsen at nighttime after 6 PM and she often ruminates about her health more at that time. She said that her ongoing anxiety makes her think that she is going to go crazy. Worries that she will end up in a home because she will be able to manage in the community with her anxiety. She said that she feels detached from reality. She had not experienced the other day where she laid down to take a nap and started to experience weird thoughts which she could not describe further. She thought that she was in the presence of demons. She denies any current delusional thoughts. He has only found the intensive outpatient groups to be minimally helpful. Recently ended up in the emergency room because of migraines. She said that she recently saw her shovel loader operator and he again told her that she could not take any antidepressant medication and specifically not Prozac. She said that she took a Xanax previously obtained through her PCP. She said that it caused her to fall asleep and she does not want to continue taking it. Klonopin previously caused her to feel weird. She does not want to take any benzodiazepines. She also says that Atarax previously did not help her. I advised her to seek a second opinion through the [facility] and cardiology for the possibility of starting on an antidepressant with close monitoring. Current Psychiatric Medications: None Review of Systems: Psychiatry: Continuing depression, anxiety and somatic symptom disorder as per HPI. She is not suicidal. There is no psychosis evide nt. She is cognitively intact. Cardiac: Palpitations and QT prolongation by history. Mental Status Examination: The patient presented as a demoralized woman who was anxious on examination. Her thoughts are logical and coherent. She reported ongoing symptoms of depression and anxiety as per HPI. She is not suicidal. There is no psychosis evident. She is cognitively intact. Diagnoses: [] [place] I: Aggressive disorder and specified; anxiety disorder and specified; somatic symptom disorder [place] II: Deferred [place] III: Palpitations of uncertain etiology; history of pulmonary hypertension; migraine headaches Plan: No psychiatric medicines were prescribed today. The patient will continue participation in the intensive outpatient groups. As above, I recommended another cardiology opinion.
--- NOTE | 2018-12-30 10:55 | PN_ITS ---
Progress Note Chief Complaint: The patient is a 35-year old female who is an active participant in the intensive outpatient mental health treatment program at [facility]. She has a history of depression, anxiety and personality vulnerabilities. History of Present Illness/Interim History: The patient reports doing well. Her mood has been good. Her anxiety has been manageable. She is optimistic about the future. She thinks that the intensive outpatient groups have been helpful and have helped her to change my outlook. I am seeing things more positive, and am challenging my thoughts. She said that she started working again last Wednesday and she feels positive about returning to work. Current Psychiatric Medications: Celexa 10 mg daily, gabapentin 300 mg twice daily, Latuda 80 mg daily, propranolol 12.5 mg daily Review of Symptoms: Psychiatry: Improving depression and anxiety as per HPI. She is not suicidal. There is no psychosis. She is cognitively intact. Constitutional: She is obese and her weight has been steady. Her energy level is improving. Mental Status Examination: The patient presented as a pleasant filing woman of overweight build who demonstrates improved social skills. She is in no acute distress. Her thoughts are logical and coherent. She reported improvement in depression and anxiety. She is not suicidal. There is no psychosis. She is cognitively intact. Diagnoses: [] [employer] I: Major depression, recurrent, in remission; ANGELITO; adjustment disorder with anxiety and depression [employer] II: Personality disorder unspecified [employer] III: Obesity, diabetes, sleep apnea Plan: I am continuing the patient's current doses of medications as prescribed by her outside provider. She is completing her participation in the intensive outpatient groups. I will see her again as needed.
--- NOTE | 2018-12-30 14:03 | BH.MDN ---
Multi-Disciplinary Note - Note 30-min Individual Time Started:: 11:44 Date: 12/30/18 Purpose of session/treatment goals addressed:: The purpose of this session was to address current symptoms, stressors, and anxious thoughts. Another goal was to utilize DBT skills to increase distress tolerance. Other topics included: risk assessment and radical acceptance. Eye Contact:: Good Motor Activity:: Slowed Appearance:: Disheveled Speech:: Rapid Mood:: Anxious, Dysthymic Affect:: Congruent, Other - tearful Thoughts:: Other - client reporting thought blocking and presenting with ruminations., No evidence of hallucinations/delusions noted Staff Interventions:: Therapist used open-ended questions and active listening while providing a safe space for client to process and verbalize her emotions, symptoms, and stressors. Therapist used DBT skills to help client learn distress tolerance techniques to manage intrusive thoughts and anxiety symptoms. Therapist introduced radical acceptance and rehearsed acevedo mind thinking strategies. Therapist helped reframe her negative thoughts about the weekend and focus on hourly goals. Therapist used strengths perspective to increase resilience and gently challenged catastrophizing thinking. Therapist gave client homework to focus on hour by hour coping skills this weekend. Client Response:: Client responded well to session, open to meeting with therapist. Client was tearful throughout session and reported feeling frustrated, exhausted, and overwhelmed with all her symptoms. Client stated there are a lot of things that are hard for her to accept right now including; not being able to take medication, not being the same as she was before, feeling like a burden, and not being able to do many activities. With therapist elicitation, client able to recognize use of distortions and self-depreciation. Client connected with acevedo mind, emotion mind, and logic mind. Client shared I'm always emotion mind. With help from therapist, client able to reframe some of her negative thoughts and focus on what she can control. Client appeared to connect with radical acceptance and how it could benefit in coping with external stressors. Client stated she is worried about the weekend and shared concerns that the weekend will be terrible. Client receptive to looking at the weekend as hour by hour rather than day by day. Client willing to practice checking in with herself each hour and use coping skills to reset herself each hour. Client willing to reach out to supports and spend time out of her house this weekend as well. Risks/Concerns:: Client reports having wishes of such as if the good lord took me now I'd be okay with it. Client denies any suicidal ideations, plan, or intent as of 12/30/18. Client reports ability to maintain safety. Protective factors include family and marry. Progress Toward Goals/Plan:: Client has demonstrated progress towards her treatment goals, but she recently presents with a regression in symptoms. Client endorses crying spells, intrusive thoughts about medical issues, wishes of , low energy, and a depressed mood. Client willing to reframe thoughts during session and practice using acevedo mind techniques. Client and therapist discussed strategies to help manage symptoms over the weekend. Client to continue IOP to prevent further decompensation and increase daily functioning. Time Stopped:: 12:12
--- NOTE | 2019-01-02 09:06 | BH.SGPN.GN ---
Behaviors/Verbalizations/Mental Status: [Eye contact is good. Motor activity appropriate. Appearance is casual. Speech is Appropriate. Mood is dysthymic, anxious. Affect is congruent. Thoughts are linear and logical. No evidence of psychosis. Reviewed daily check in sheet and no reports of suicidal ideations or intent.] Client Response/Progress/Benefit: [Pt was attentive in group discussion, providing positive feedback throughout and able to actively challenge negative thoughts. This is progress as she often gets caught in dichotomous thinking patterns which reinforce anxiety and negative thinking. Pt emotion for today is tired as she did not sleep well this weekend. Reports current mental health wins include: challenging herself to go horseback riding with her family despite being anxious and getting little sleep, as well as reminding herself to take things ?one hour at a time?. Reports this was effective in managing anxieties throughout weekend. Pt showing progress in increased willingness to challenge negative thoughts and identify small positives. Appearing to benefit from the supportive group environment as well as reflecting upon positives. Pt reports she is happy to say she does not currently have a current stressor. Will continue in IOP to further promote consistent skill application, continue to reduce anxiety, and prevent decompensation.] Narrative Note: []
--- NOTE | 2019-01-02 10:15 | BH.SGPN.GN ---
Behaviors/Verbalizations/Mental Status: []Client alert and oriented, casually dressed and groomed. Eye contact good. Motor activity appropriate. Speech within normal limits. Affect congruent, mood euthymic. Thoughts linear, logical, no signs of hallucinations or delusions. Client Response/Progress/Benefit: []Client participated in group discussion and activity. Client reported it is important to face conflict head on because ?you can?t stuff emotions down forever.? Worked together with the group to define and identify differences between internal and external conflict. Group identified and discussed the benefits of addressing internal/external conflict which includes; express emotions and thoughts, resolve problems, improve relationships, and improve mental health. Client worked with group to identify barriers to overcoming conflict which included; body language, unmanaged emotions, defensiveness, tone of voice, negative thoughts, being closed minded, and low self-worth. Attentive during psychoeducation on different conflict styles such as avoiding, accommodating, competing, and collaborative. Reviewed benefits and drawbacks to each style. Benefited as she was able to identify and define conflict as well as increase awareness of how conflict style impacts mental health. Progress noted as client reports reduced anxiety since last week, but she continues to struggle with mood instability and managing anxious thoughts.
--- NOTE | 2019-01-04 09:10 | BH.SGPN.GN ---
Behaviors/Verbalizations/Mental Status: [] Eye contact is good. Motor activity is appropriate. Appearance is disheveled. Speech is Appropriate. Mood is anxious. Affect is congruent. Thoughts are linear and logical. No evidence of psychosis. Reviewed daily check in sheet and no reports of suicidal ideations or intent. Client Response/Progress/Benefit: [] Pt was an active participant in group discussion. Emotion for today is anxious. Shared that she had accomplished two very significant goals this week. Reports that she actually drove yesterday which she has not done in several weeks. Utilized skills learned in IOP to manage anxiety, distraction, and control thoughts. She discussed how much progress this signifies and how proud she is of accomplishing this goal. Also reports that she had experienced a depressive event last night. Reports that she allowed the emotion to occur however it did not consume her. She discussed what she had done differently than in the past. Reports that in the past depression would occur, her thoughts would overwhelm her, this would lead to anxiety and ultimately panic, which would last for several hours. Group praised her for her accomplishments. Tearful stating I still don't like who [place]. Reports that she is grieving for the person she used to be and feels she will never get there. Group reframed and discussed her recent progress as a step towards her goals. Progress noted per pt report. Will continue in IOP to stabilize anxiety, improve daily functioning, and prevent decompensation, Narrative Note: []
--- NOTE | 2019-01-04 10:10 | BH.SGPN.GN ---
Behaviors/Verbalizations/Mental Status: []Client alert and oriented, casually dressed and groomed. Eye contact good. Motor activity appropriate. Speech within normal limits- engaging in side conversation. Affect congruent, mood euthymic. Thoughts linear, logical, no signs of hallucinations or delusions. Client Response/Progress/Benefit: []Client was an active participant in group activity and discussion, but client engaging in side conversations at times. Client connected with the quote and agreed with peers that to have personal growth, one must apply time and effort to change. Client, along with other group members, provided input and suggestions when identifying what internal/external forces are and the impact that these forces have on their mental health. Client shared it is important to focus on controlling internal forces such as challenging negative thinking. Examples of negative forces included; negative self-talk, toxic people, and not using coping skills. Client identified using thought challenging, deep breathing, setting boundaries, exercise, and friends and family as positive forces. Client engaged in the activity and did well to cope and adapt with frustrations when faced with change. Benefited from increased awareness of how different positive and negative forces impact mental health. Progress noted in reduced anxiety symptoms since last week. Client to continue IOP to prevent decompensation and increase mood stability.
--- NOTE | 2019-01-04 14:51 | BH.MDN ---
Multi-Disciplinary Note - Note 45-min Individual Time Started:: 12:25 Date: 01/04/19 Purpose of session/treatment goals addressed:: The purpose of this session was to address client's current symptoms, stressors, and intrusive thoughts. Another goal was to practice strategies to effectively manage anxious, intrusive thoughts. Other topics included: homework review and health anxiety. Eye Contact:: Good Motor Activity:: Appropriate Appearance:: Casual Speech:: Appropriate Mood:: Anxious, Other - hopeful Affect:: Congruent - tearful at times Thoughts:: Linear, Logical, No evidence of hallucinations/delusions noted Staff Interventions:: Therapist used open-ended questions and active listening to gather information on client?s emotions, symptoms, and stressors. Therapist reviewed client?s homework and introduced client to the next three steps towards overcoming unwanted intrusive thoughts; float and feel, let time pass, and proceed. Therapist rehearsed these strategies with client. Therapist provided further psychoeducation on health anxiety and intrusive thoughts. Therapist introduced dialectical thinking to help client combat negative core beliefs of self and challenge perspective on stressors. Therapist gave client homework to review the health anxiety handout and write out three balanced thoughts for three worried thoughts. Client Response:: Client responded well to session, open to meeting with therapist. Client shared she feels in a better place than last week, even though she is still experiencing anxiety daily. Client reported a woman from her restorationism helped client realize that client is resilient and can cope with her mental health even with the barrier of not being able to take the medication that has helped in the past. Client stated she was also able to prevent herself from isolating and spiraling last night by using the just a thought technique and grounding coping skills. Client completed her homework and therapist reviewed it with client. Client receptive to learning about the next three steps to overcoming intrusive, anxious thoughts. Client rehearsed these with therapist. Client came up with a metaphor to help remember these strategies. Client receptive to psychoeducation on health anxiety. Client connected with the vicious flower which included behaviors and thoughts that reinforce health anxiety. Client identified her triggers to be changes in breathing patterns and issues with her heart. Client shared she has been researching less and seeking reassurance from doctors less which is progress. Client reported her doctor and have been setting boundaries which has helped as well. Client willing to complete homework on creating balanced thoughts to help client cope with her intrusive health anxiety-related thoughts. Risks/Concerns:: Client reports at times her symptoms cause her to have wishes of . Client denies any suicidal ideations, plan, or intent as of 01/04/19. Client reports ability to maintain safety. Future oriented. Progress Toward Goals/Plan:: Client has demonstrated progress towards her treatment goals, as shown by her report of reduction in symptoms since last session. Client shared she was able to use coping skills yesterday to prevent a panic attack and isolative behaviors. Client reports an improved outlook on her ability to manage her mental health since last week. However, client continues to endorse crying spells, intrusive thoughts about medical issues, wishes of , low energy, and a depressed mood. Client completed homework from last session and was willing practice strategies discussed today. Client to continue IOP to prevent decompensation, improve daily functioning, and increase mood stability. Time Stopped:: 13:05
--- NOTE | 2019-01-06 09:00 | BH.SGPN.GN ---
Behaviors/Verbalizations/Mental Status: []Client alert and oriented, casually dressed and groomed. Eye contact good. Motor activity appropriate. Speech rapid, interrupting. Affect congruent-tearful at times, mood irritable, anxious, depressed. Thoughts linear, logical, no signs of hallucinations or delusions. Reviewed client?s symptom tracker, no risk for suicidal ideation, plan, or intent as of 01/06/19. Client Response/Progress/Benefit: []Client responded somewhat well to session, interrupting at times. Client reports feeling ?numb? today. Client continues to report difficulty coping with her medical conditions and experienced increased heart palpitations yesterday and ?had a mental breakdown.? Client stated she was having a great day before this happen and shared now she feels hopeless. Client reported ?why try if you just keep feeling worse.? The group attempted to challenge client?s negative thoughts. Client interrupted and disqualified suggestions at first, but then became more receptive. Client appeared to connect with radical acceptance and how lack of acceptance leads to increased suffering and anger. Client able to identify positives from yesterday such as driving on her own and getting things down around the house yesterday. 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 Client will continue IOP as she continues to struggle with intrusive thoughts, somatic symptoms, crying spells, irritability, and managing her anxiety.
--- NOTE | 2019-01-06 10:10 | BH.SGPN.GN ---
Behaviors/Verbalizations/Mental Status: [] Eye contact is good. Motor activity is appropriate. Appearance is disheveled. Speech is Appropriate. Mood is anxious. Affect is congruent. Thoughts are linear and logical. No evidence of psychosis. Client Response/Progress/Benefit: [] Pt participated in group activity and discussions. Provided insight on today's quote. Group worked together to identify benefits to developing goals which included; helps one grow, improves mental health through purpose, gives one something to look forward too or strive for, motivates, keeps one focused, can give a sense of accomplishment, and provides hope for the future. Group also identified barriers to setting and accomplishing goals which included; fear fo failure, past negative experiences, negative people in our lives, negative thoughts, our emotions (depression, stress, anger, anxiety), trouble getting out of our comfort zone, and our perception or outlooks. Attentive during education on developing SMART goals. Benefited from increase awareness of goal-setting methods. Will continue in IOP to prevent decompensation, decrease panic attacks, and improve daily functioning. Narrative Note: []
--- NOTE | 2019-01-06 10:33 | BH.TPR ---
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 Client has been an active group member as she provides examples in discussion and support to peers. During individual sessions, client is receptive to thought challenging and learning strategies to manage symptoms. Client has shown progress in not engaging in behaviors that reinforce anxiety such as researching medications. Client has also worked on trying to get out of the house more and she follows through with homework. Client continues to struggle with mood instability and negative, intrusive thinking. Client is becoming more aware of her black and white thinking and client is learning how she can find good in bad situations. Client does well to acknowledge and challenge negative thinking with the help of external support, but she struggles to cope with these thoughts consistently on her own. Client also reports difficulty with acceptance and acknowledging anxiety?s role in her medical condition. Client?s scores for depression maintained at 6/8 from admission to review. Client?s DSM-5 scores for anxiety reduced from 11/12 at admission to 10/12 at review. Client recommended ongoing IOP treatment as she continues to meet criteria for IOP level of care. Status of Current Problems and Symptoms: Client continues to endorse crying spells, intrusive thoughts about medical issues, wishes of , low energy, and a depressed mood. Client also reports ongoing panic, inability to drive long distances, and physical symptoms of anxiety. Client has improved with implementing coping skills to manage intrusive thoughts, but she continues to struggle with catastrophizing and reassurance seeking. Client will continue to work on improving distress tolerance, mindfulness, and radical acceptance during group and individual sessions. Problem #1 Problem Name:: Pt. will decrease depressive symptoms, isolation, and crying spells. Status of Goals:: Objective 1-partially complete. Client can identify and reports using coping skills such as progressive muscle relaxation, prayer, and walking. Client?s DSM-5 symptoms for depression did not decrease as they remained 6/8 at review. It is positive to note that her scores did not worsen which demonstrates prevention of decompensation. Objective 2-partially complete. Client has been able to get out of her house more often to visit her daughter, but client still isolates. Client would like to return to [facility], restorationist, and find more hobbies. Team Recommendations:: Client is recommended to continue working on this treatment goal as she continues to present with moderate symptoms of depression, passive thoughts of , and crying spells. Client has made strides to reduce isolation and has been responding well to thought challenging. It is also recommended that client follow up with outpatient counseling post IOP discharge. Problem #2 Problem Name:: Pt. will reduce frequency, intensity, and duration of anxiety. Status of Goals:: Objective 1-partially complete. Client can identify triggers and reports using deep breathing, progressive muscle relaxation, and self-talk to manage anxiety. Client?s DSM-5 symptoms for anxiety decreased from 11/12 at admission to 10/12 at review. Although this is a decrease, these scores still indicate moderate to severe anxiety and client can benefit from ongoing work to reduce this. Objective 2-partially complete. Client has been learning various strategies to overcome intrusive thoughts including; just a thought, acceptance, and letting time pass. Client has been able to reduce her reassurance seeking behaviors. Client can continue to work on this goal as her ability to manage intrusive/ruminating thoughts is not consistent. Team Recommendations:: Client is recommended to continue working on this treatment goals as her anxiety symptoms are still moderate to severe. Client has made strides in implementing mindfulness and thoughts are thoughts not facts to manage her intrusive thoughts. However, client continues to report inability to drive long distances, panic, somatic symptoms, and negative thinking. Client is also recommended to follow up with her outpatient counselor post IOP discharge.
--- NOTE | 2019-01-06 11:15 | BH.SGPN.GN ---
Behaviors/Verbalizations/Mental Status: [Pt eye contact good, casually dressed, motor activity restless, speech normal rate and tone, at times struggling to remain on topic, mood anxious and distracted, congruent affect, thoughts appearing distracted and significant for rumination, no evidence of delusions or hallucinations. ] Client Response/Progress/Benefit: [Pt mostly attentive and contributed to discussion, however at times distracted by side conversations ? able to be redirected when prompted. Able to work with group to reflect on challenge activity and make connections between barriers faced and supports used with own life. Engaged in creating her own mental health SMART goal and identified goal as: ?reduce anxiety by checking-in hourly with myself throughout the weekend?. Client stated this goal will benefit her by challenging her negative outlook and tendency to use ?black and white? thinking. Pt identified heart palpitations, isolating, focusing on the negative, and having additional people around as potential barriers to achieving identified goal. Pt seemed to benefit from identifying a SMART goal and developing ways to overcome potential barriers. Pt reports supports for achieving goal as: staying out of her room, focusing on her marry, and deep breathing. Progress noted in pt ability to challenge negative thoughts as they began to occur throughout group and focus on returning to the present moment. Pt to continue IOP level care to reduce panic sx, continue to promote application of healthy coping and thought challenging, and maintain stability. ] Narrative Note: []
== END 2019-01-08 23:59 ==
LOC: BHIOP 09:00
PROVIDERS: Family Provider Family Medicine; PCP Family Medicine; Referring Provider Psychiatry & Neurology Psychiatry; Visit Provider Psychiatry & Neurology Psychiatry
DX: F33.40 Major depressive disorder, recurrent, in remission, unspecified (principal); F43.23 Adjustment disorder with mixed anxiety and depressed mood; F45.9 Somatoform disorder, unspecified; E66.9 Obesity, unspecified; E11.9 Type 2 diabetes mellitus without complications; I27.20 Pulmonary hypertension, unspecified
CPT/HCPCS: H0035; 90832; 90834; 90853

== ENCOUNTER → 2018-12-19 | Outpatient (CLI) | payer MEDICAID, SELFPAY ==
[2018-12-19 08:51] VITALS: BMI 26.9
--- NOTE | 2018-12-19 11:23 | BH.SGPN.GN ---
Behaviors/Verbalizations/Mental Status: [Client alert and oriented. Appearance is casual, appropriate grooming. Eye contact fair to good. Motor activity WNL. Speech appropriate rate and tone. Affect congruent. mood euthymic. Thoughts linear, logical, no signs of hallucinations or delusions.] Client Response/Progress/Benefit: [Pt provided some input and engaged in discussion, remaining attentive and taking notes throughout. Pt benefitted from working with group to reflect upon the mental health benefits of taking small actionable steps towards addressing barriers and promoting healthy change in daily life. Indicated at times struggling to believe change is possible when her anxiety and depression is at it?s worst but is making strides to improve in this area. Pt did well to work with the group on completing the example Change Action Plan and applying the skills learned to pt own Action Plan. Pt identified wanting to improve ability to manage anxious thoughts. Pt shared this would increase stability, reduce feelings of helplessness, and increase positive outlook. Pt shared she would begin by practicing applying mindfulness skills and positive affirmations when feeling anxious. Pt progress noted in ability to identify concrete and realistic steps to addressing barriers to actionable change identified. Recommended continued IOP tx to prevent decompensation, reduce anxiety, and promote healthy change behaviors.] Narrative Note: []
== END | disposition home or self-care (01) ==
LOC: PSN 13:51
PROVIDERS: Family Provider Family Medicine; PCP Family Medicine; Referring Provider Internal Medicine Cardiovascular Disease; Visit Provider Internal Medicine Cardiovascular Disease
DX: R00.2 Palpitations (principal); R07.9 Chest pain, unspecified; I27.21 Secondary pulmonary arterial hypertension; E78.5 Hyperlipidemia, unspecified
CPT/HCPCS: 93225; 93226

== ENCOUNTER 2018-12-25 18:06 | Emergency (ER) | payer MEDICAID, SELFPAY ==
[2018-12-19 08:51] VITALS: BMI 26.9
[2018-12-25 18:06] VITALS: BP 139/77; PULSE 58; RESP 16; TEMP 36.8; O2SAT 100; BMI 26.5
--- NOTE | 2018-12-25 18:25 | EKG12_ITS ---
Test Reason : Blood Pressure : / mmHG Vent. Rate : 053 BPM Atrial Rate : 053 BPM P-R Int : 146 ms QRS Dur : 080 ms QT Int : 456 ms P-R-T Axes : 004 -14 007 degrees QTc Int : 427 ms Sinus bradycardia Otherwise normal ECG Confirmed by JENA NAZARIO MD ([id number]), editor farm journal TERRY DE SOUZA ([id number] on 12/26/2018 1:22:55 PM Referred By: LISA Confirmed By:JENA NAZARIO MD
--- NOTE | 2018-12-25 18:26 | ED.VISSUMM ---
- ER Visit Summary Date of Service: 12/25/18 Chief Complaint: Headache with a history of migraine History of Present Illness: The patient is a 53 F history of migraine headaches and anxiety. Has had multiple prior abdominal surgeries. Patient states that a headache behind her left eye that is developed no migraine. She denies any recent head trauma. No fever. She is on no blood thinners. She has had a recent MRI in September of this year of her brain which was read as unremarkable. She denies any sinus congestion. Physical Examination: Middle-aged female vital signs are stable and afebrile. Initial blood pressure is 139/77. HEENT exam pupils are reactive light. No facial droop. Normal speech. No signs of trauma to her face or scalp. No frontal or maxillary sinus tenderness. Neck nontender no meningismus. Able to touch chin to chest. Lungs clear to auscultation bilaterally. Heart regular rhythm no murmur. Chest wall nontender. Abdomen soft nontender. She is moving all 4 extremities are neurovascular intact. Back is nontender. Neurologically she is awake and alert with no focal motor or sensory deficits. Emotionally the patient appears depressed. Test Results: She is complaining of palpitations nurses per protocol ordered an EKG which shows sinus rhythm rate of 53 consistent with sinus bradycardia but no acute signs of OH or ischemia. Emergency Department Course and Treatment: The patient's headache and history of migraines I ordered her IV fluids, Toradol, Benadryl and Zofran. Patient has a history of anxiety and did not like the medications because she was concerned what they were due to her. We explained to her that wheezes commonly and typically people have good response to medication she has not laying medications in 1 to be discharged home. Treatment Plan: Tylenol and Motrin for pain. Follow-up with your doctor. Return if feeling worse. Disposition: Discharge Impression: Acute headache with history of migraines History of anxiety This note was generated with [employer] dictation software. It may contain incorrect words, spelling, and punctuation that were not noted in review of the chart prior to signing ED Disposition - Plan for ED Patient: Referrals: Bryson Sandhu MD [Primary Care Provider] -
--- NOTE | 2018-12-25 18:32 | ED.DCSUM_ITS ---
- ER Visit Summary Date of Service: 12/25/18 Chief Complaint: Headache with a history of migraine History of Present Illness: The patient is a 53 F history of migraine headaches and anxiety. Has had multiple prior abdominal surgeries. Patient states that a headache behind her left eye that is developed no migraine. She denies any recent head trauma. No fever. She is on no blood thinners. She has had a recent MRI in September of this year of her brain which was read as unremarkable. She denies any sinus congestion. Physical Examination: Middle-aged female vital signs are stable and afebrile. Initial blood pressure is 139/77. HEENT exam pupils are reactive light. No facial droop. Normal speech. No signs of trauma to her face or scalp. No frontal or maxillary sinus tenderness. Neck nontender no meningismus. Able to touch chin to chest. Lungs clear to auscultation bilaterally. Heart regular rhythm no murmur. Chest wall nontender. Abdomen soft nontender. She is moving all 4 extremities are neurovascular intact. Back is nontender. Neurologically she is awake and alert with no focal motor or sensory deficits. Emotionally the patient appears depressed. Test Results: She is complaining of palpitations nurses per protocol ordered an EKG which shows sinus rhythm rate of 53 consistent with sinus bradycardia but no acute signs of MD or ischemia. Emergency Department Course and Treatment: The patient's headache and history of migraines I ordered her IV fluids, Toradol, Benadryl and Zofran. Patient has a history of anxiety and did not like the medications because she was concerned what they were due to her. We explained to her that wheezes commonly and typically people have good response to medication she has not laying medications in 1 to be discharged home. Treatment Plan: Tylenol and Motrin for pain. Follow-up with your doctor. Return if feeling worse. Disposition: Discharge Impression: Acute headache with history of migraines History of anxiety This note was generated with [employer] dictation software. It may contain incorrect words, spelling, and punctuation that were not noted in review of the chart pr ior to signing ED Disposition - Plan for ED Patient: Referrals: Bryson Sandhu MD [Primary Care Provider] -
--- NOTE | 2018-12-25 18:32 | ED.DEP ---
ED Disposition - Plan for ED Patient: Disposition: Home or Assisted Living Instructions: ED Headache Migraine Referrals: Bryson Sandhu MD [Primary Care Provider] - 3-5 Days if not improving Additional Instructions: Plenty of fluids and rest. Tylenol and Motrin for pain. Follow-up with your doctor if not improving return if feeling worse.
== END 2018-12-25 18:42 | disposition home or self-care (01) ==
LOC: ED 18:40
PROVIDERS: Emergency Provider Emergency Medicine; Family Provider Family Medicine; PCP Family Medicine
DX: R51 Headache (principal); F41.9 Anxiety disorder, unspecified
CPT/HCPCS: 93005; 99285; A4216

== ENCOUNTER 2018-12-28 10:51 | Emergency (ER) | payer OTHER, SELFPAY ==
[2018-12-28 10:51] VITALS: BP 145/76; PULSE 56; RESP 18; TEMP 36.6; O2SAT 100; BMI 26.5
--- NOTE | 2018-12-28 11:13 | ED.DCSUM_ITS ---
- ER Visit Summary Date of Service: 12/28/18 Chief Complaint: Migraines History of Present Illness: The patient is a 53 F who presents for recent migraines. Over the last 3 to 4 days, she has had daily migraines. She was seen previously, treated, and discharged. She has had continued migraines. She also reports that she feels dizzy. She tried taking ibuprofen at home, but it is not helping. She had the symptoms before. She is concerned that she may be dehydrated, and she is requesting blood work. She is having nausea but no vomiting. No diarrhea. No urinary symptoms. No chest pain or shortness of breath. No other associated symptoms. Physical Examination: Afebrile vital signs unremarkable. Patient alert and oriented. No acute distress. Head and neck unremarkable. HEENT exam unremarkable. Heart regular. Lungs clear. Extremities nontender with no edema. Skin normal in color. Test Results: CBC and BMP pending. Emergency Department Course and Treatment: At the patient's request, we started with IV fluids. She received a liter of normal saline. We will also check CBC and BMP for any derangements there. No other diagnostic testing is indicated. She had an MRI of her head 3 months ago and it was unremarkable. CBC and BMP were unremarkable. On reevaluation, patient feels spacey. No other associated symptoms or new or worsening issues. I advised treatment for migraines. I offered multiple regimens. The patient declined. I do not feel the patient needs imaging or further diagnostic testing. Nothing to suggest stroke. Patient has follow-up with her neurologist on Wednesday but she will return if she has new or worsening issues. Treatment Plan: As above Disposition: Discharge Impression: 1. Lightheadedness This note was generated with [employer] dictation software. It may contain incorrect words, spelling, and punctuation that were not noted in review of the chart prior to signing ED Disposition - Plan for ED Patient: Referrals: Bryson Sandhu MD [Primary Care Provider] -
[2018-12-28 11:25] VITALS: RESP 18
[2018-12-28] MEDS: 0.9% Normal Saline 1,000 ML 1000 ML IV (11:25)
[2018-12-28 11:36] LABS: Absolute Lymphocyte Count 1.59 X10^3/ul (0.83-4.51); Absolute Neutrophil Count 5.1 X10^3/uL (2.0-7.7); Basophil# 0.03 X10^3/uL; Basophil% 0.4 % (0-1); Eosinophil# 0.12 X10^3/uL; Eosinophils% 1.6 % (0-5); Hematocrit 44.6 % (37-47); Hemoglobin 15.5 g/dl (12.0-15.0); Lymphocyte # 1.59 X10^3/ul (4.0); Lymphocyte % 21.5 % (19-41); Mean Corp Hgb Conc 34.8 g/gl (32-36); Mean Corpuscular Hgb 29.7 pg (27.0-32.0); Mean Corpuscular Volume 85.4 fL (81-99); Mean Platelet Vol. 10.1 fl (6.2-12.0); Monocyte# 0.55 X10^3/uL; Monocyte% 7.5 % (0-10); Neutrophil # 5.06 X10^3/uL (2.7-7.7); Neutrophil % 68.6 % (47-70); Platelet Count 250 K/mm3 (150-450); RBC Distribution Width CV 12.7 % (11.6-14.6); RBC Distribution Width SD 39.9 fl (35.1-43.9); Red Blood Count 5.22 M/mm3 (4.2-5.4); White Blood Count 7.4 K/mm3 (4.4-11.0)
[2018-12-28 11:37] LABS: POSITIVE COUNT NO; POSITIVE DIFFERENTIAL NO; POSITIVE MORPHOLOGY NO
[2018-12-28 11:49] LABS: Anion Gap 7 (5-15); BUN 8 mg/dL (7-18); BUN/Creat Ratio 10.6 RATIO (10-20); Chloride 109 mmol/L (98-107); Creatinine, Serum 0.76 mg/dL (0.55-1.02); EST Glomerular Filtration Rate 86 mL/min (>60); Est Glom Filt Rate - Afr Amer 104 mL/min (>60); Estimated Creatinine Clearance 69.26 ml/min; Glucose 113 mg/dL (74-106); Potassium 3.7 mmol/L (3.5-5.1); Sodium Level 141 mmol/L (136-145)
--- NOTE | 2018-12-28 12:09 | ED.DEP ---
ED Disposition - Plan for ED Patient: Instructions: DIZZINESS, Unk Cause Referrals: Bryson Sandhu MD [Primary Care Provider] - Additional Instructions: follow up with your neurologist
[2018-12-28 12:15] VITALS: RESP 17
== END 2018-12-28 12:16 | disposition home or self-care (01) ==
LOC: ED 11:26
PROVIDERS: Emergency Provider Emergency Medicine; Family Provider Family Medicine; PCP Family Medicine
DX: R42 Dizziness and giddiness (principal)
CPT/HCPCS: 80048; 85025; 96360; 99283; J7030

== ENCOUNTER 2019-01-10 09:00 | Outpatient (RCR) | payer OTHER, SELFPAY ==
--- NOTE | 2019-01-10 09:10 | BH.SGPN.GN ---
Behaviors/Verbalizations/Mental Status: [] Eye contact is good. Motor activity is appropriate. Appearance is disheveled. Speech is Appropriate. Mood is anxious. Affect is congruent. Thoughts are linear and logical. No evidence of psychosis. Reviewed daily check in sheet and no reports of suicidal ideations or intent. Client Response/Progress/Benefit: [] Pt was an active participant in group discussion. Shared with the group that her weekend was awful. Notes increased anxiety, panic, irritability, and cardiac symptoms. States I threw all my skills out the window. Discussed the events that lead to her panic attack yesterday. Appears that her anxiety was increasing throughout the day. She did little to address her warning signs or worsening anxiety and it eventually lead to panic and overwhelming thoughts. Stated i thought i was going to punch someone. She did mention that she did utilize some thought reframing and support later on in the day. Also utilized mindfulness skills which helped manage her anxiety. Remains inconsistent with skills which are impacting functioning. Difficulty managing stressors which impacts daily interactions and functioning. Benefited from group support, feedback, encouragement. Group provided feedback on identifying an utilizing coping skills earlier. Will continue in IOP to prevent decompensation, maintain safety, and stabilize mood. Narrative Note: []
--- NOTE | 2019-01-10 10:10 | BH.SGPN.GN ---
Behaviors/Verbalizations/Mental Status: []Client alert and oriented, casually dressed and groomed. Eye contact good. Motor activity appropriate. Speech within normal limits. Affect congruent to topics being discussed, mood anxious. Thoughts linear, logical, no signs of hallucinations or delusions. Client Response/Progress/Benefit: []Client was an active participant in group discussions. Attentive and taking notes. Provided insight during processing of the quote sharing, ?we know we need to change but we get stuck in our comfort zone.? The group and client worked together to identify barriers that keep one from choosing a new and healthier path to mental wellness which included; negative thinking, not using coping skills, lack of awareness, habit, fear of unknown, lack of resources, unmanaged mental health symptoms, unhealthy coping skills, and lack of boundaries. Client shared if one does not overcome these barriers and make change ?you hit a wall? which results in more life difficulties. Attentive during psycho-education on the chapters of life. Client was engaged in group and provided insight into what keeps one stuck on certain life chapters. Client reports belief she is currently in ?chapter 3? as client shared she has learned coping skills, but she continues to fall into the ?hole? that is her symptoms due to habit. Benefited from increased awareness and education on barriers to choosing new wellness paths and chapters of life. Will continue IOP to promote mood stability and increase distress tolerance skills.
--- NOTE | 2019-01-10 11:10 | BH.SGPN.GN ---
Behaviors/Verbalizations/Mental Status: []Client alert and oriented, casually dressed and groomed. Eye contact good. Motor activity appropriate. Speech within normal limits. Affect congruent to topic being discussed, mood anxious. Thoughts linear, logical, no signs of hallucinations or delusions. Client Response/Progress/Benefit: []Client was an active participant in group discussion, contributing to discussion and listened attentively to others. Completed worksheet and willing to share with the group. Client reported believes she is in chapter 3? as client shared she is having an easier time getting out of the hole and is gaining awareness of barriers to progress. Client shared to get to the next chapter she will focus on continuing to utilize healthy coping skills, challenging her distorted thoughts, and acceptance of what is out of her control. Benefited from group by identifying thoughts and behaviors that have kept her stuck and developing plan to promote progress. Will continue in IOP to promote gains, decrease anxiety and prevent decompensation. Narrative Note: []
--- NOTE | 2019-01-10 14:20 | BH.MDN ---
Multi-Disciplinary Note - Note 60-min Individual Time Started:: 12:14 Date: 01/10/19 Purpose of session/treatment goals addressed:: The purpose of this session was to address client's current symptoms, stressors, and intrusive thoughts. Another goal was to rehearse coping strategies to further reduce symptoms. Other topics included: homework review and radical acceptance. Eye Contact:: Good Motor Activity:: Appropriate Appearance:: Casual Speech:: Rambling, Rapid Mood:: Other - agitated Affect:: Congruent Thoughts:: Linear, Logical, No evidence of hallucinations/delusions noted Staff Interventions:: Therapist used open-ended questions and active listening to gather information on client?s emotions, symptoms, and stressors. Therapist reviewed client?s homework and further processed techniques with client. Therapist utilized radical acceptance to help client cope with external stressors and increase distress tolerance. Therapist used reflection to review areas of progress and help client identify ways in which client has grown. Therapist used cognitive restructuring techniques to help client combat distortions and manage intrusive thoughts. Therapist gave client homework to continue using her daily coping skills and to complete an anxiety scale activity. Client Response:: Client responded well to session, open to meeting with therapist. Client completed her homework from last session and was willing to review with therapist. Client reflected on the homework and stated it was helpful. Client connected with the thoughts and behaviors associated with health anxiety and completed the exercises of mindfulness, opposite action, and creating balanced thoughts. Client also connected with radical acceptance and shared it has been helping her work through her medical issues. Client stated she has been experiencing a lot of self-anger and shared I don't like myself right now. Client willing to practice a self-compassion and thought challenging activity. Client reported it was helpful and made her realize I'm doing the best I can. Client also expressed other distorted thoughts she had over the weekend and was able to challenge them in session. Client continues to use techniques from the overcoming unwanted intrusive thoughts books to manage her health anxiety. Client identified her progress to be reduced reassurance seeking, improved ability to cope with panic, reduced hopelessness, and increased awareness. Client wants to continue to work on radical acceptance and proactively utilizing coping skills to prevent panic. Client recognizes she has been doing more, but she still is not at her baseline for completing ADLs. Risks/Concerns:: Client reports a few days a week where she experiences passive thoughts of , however, she denies any suicidal ideations, plan, or intent as of 01/10/19. Client is future oriented and has protective factors. Progress Toward Goals/Plan:: Client has demonstrated progress towards her treatment goals, as shown by her report of utilizing coping skills more frequently, less reassurance seeking behaviors, and improved outlook on her ability to cope with mental health. Client's insight has improved and client admits to behaviors that have not been helpful to her progress and is willing to change them. Client shared she continues to have panic and ?terrible? moments, but client reports belief she is able to bounce back quicker and ?not let it ruin my whole day.? Client continues to endorse crying spells, intrusive thoughts about medical issues, wishes of , a depressed mood, low energy, and an irritability. Client shared weekends and evening continue to be the most challenging times for her, but client?s has been supportive which helps client get through her difficult times. Client completed homework from last session and was willing practice strategies discussed today. Client to continue IOP to promote gains, improve daily functioning, and increase mood stability. Time Stopped:: 13:14
--- NOTE | 2019-01-11 09:02 | BH.SGPN.GN ---
Behaviors/Verbalizations/Mental Status: []Pt eye contact good, casually dressed, motor activity appropriate, speech normal rate and tone, mood euthymic, congruent affect, thoughts linear and intact, no evidence of delusions or hallucinations. Pt completed symptom tracker denying suicidal thoughts or intention to date Client Response/Progress/Benefit: [] Client engaged during session as evidenced by her being attentive to others and sharing thoughts and feelings throughout. Client identified a mental health positive as being able to production cook last night. Client stated cooking dinner has not been something she has been able to do due to her mental symptoms but is proud of herself for being able to complete that test yesterday. Client identified another mental health when he is being able to hang out with her grandson and daughter. Client reported feeling anxious about an upcoming cookout with her family but states she is using her healthy coping skills to manage the anxiety. Client stated she recognizes the cookout will be positive but is still anxious. Client reported she has difficulty in the evenings and weekends because there is less for her to do which results in feeling forward and increased anxiety. Client struggles with being open to suggestions from others often identifying how the strategy or skill would not help her. Client progress variable as evidenced by at times client utilizing her skills and other times client being closed minded or negative towards a new idea or strategy. Client to continue to love care to maintain gains, increase generalization of healthy skills, and prevent decompensation. Narrative Note: []
--- NOTE | 2019-01-11 10:14 | BH.SGPN.GN ---
Behaviors/Verbalizations/Mental Status: [Client alert and oriented, casually dressed and appropriately groomed. Eye contact good. Motor activity appropriate. Speech WNL. Affect congruent, mood anxious, dysthymic. Thoughts linear, logical, no signs of hallucinations or delusions.] Client Response/Progress/Benefit: [Pt responded well to session, providing input to discussion on fear of failure and appearing to connect with comments made by fellow participants regarding factors that impact Fear of Failure. Pt identified environment and ?black and white thinking? impact ability to manage setbacks and cope with failures. Pt expressed on several occasions that her upbringing conditioned her to be negative which indicates ongoing difficulties in challenging externalization of control. Pt however, was receptive of being challenged by fellow participants to identify internal factors impacting ability to manage setbacks. She appeared to benefit from gaining awareness of the impacts fear of failure can have on mental health through discussion and activity. She participated in challenge activity in which participants were challenged to practice becoming comfortable with potential failure by using in the moment coping when presented with setbacks. Pt at times struggled not to feed into negative thoughts and often began to make self-deprecating comments; however, displayed progress in her ability to respond to encouragement and keep from giving up. Recommended continued IOP tx to prevent decompensation, continue to promote healthy skills for managing anxiety and depression, and increase distress tolerance.] Narrative Note: []
--- NOTE | 2019-01-11 11:15 | BH.SGPN.GN ---
Behaviors/Verbalizations/Mental Status: []Client alert and oriented, casually dressed. Eye contact good. Motor activity appropriate. Speech within normal limits. Affect congruent, mood anxious. Thoughts linear, logical, no signs of hallucinations or delusions. Client Response/Progress/Benefit: []Client attentive and providing positive feedback to group discussion. Client completed fear of failure worksheet and shared with group. Identified that fear of failure keeps client from enjoying every day life. Client identified barriers to overcoming fear of failure which included; fear of relapse, fear of the unknown, comparing herself to others, lack of functioning, low self-worth, and negative thoughts. Client identified things that she can do to overcome fear of failure such as; mindfulness strategies, keeping track of progress, positive self-talk, opposite action, radical acceptance, and self-care. Benefited from identifying the impact that fear of failure has had on her life and developing strategies to overcome this. Client showing progress in generalizing coping skills to better manage anxiety and reduce isolation. Client will continue IOP as she continues to endorse anxiety, negative thoughts, and mood dysregulation.
--- NOTE | 2019-01-16 10:12 | BH.SGPN.GN ---
Behaviors/Verbalizations/Mental Status: [Pt alert and oriented, eye contact fair to good, casually dressed, motor activity appropriate, speech normal rate and tone, mood dysthymic, anxious, congruent affect, thoughts linear and intact, no evidence of delusions or hallucinations.] Client Response/Progress/Benefit: [Client engaged participant as shown by client?s contribution to discussion and listening throughout. Client participated in the discussion of the common myths about self-care including self-care is selfish, just involves hygiene, makes us weak, and always fun. Client worked with group to debunk the myths about self-care. Client stated she believes self-care is essential in maintaining mental health and preventing from falling back into depression. Expressed that despite knowing it?s importance she has a difficult time engaging in self-care related activities. Client seemed to benefit from increased awareness of the importance of self-care. Client showing variable progress as shown by continued difficulties in consistent use of healthy skill, especially at times of increased anxiety. Will continue tx to identify and challenge distorted thoughts, increase healthy coping skills, and prevent decompensation.] Narrative Note: []
--- NOTE | 2019-01-16 11:15 | BH.SGPN.GN ---
Behaviors/Verbalizations/Mental Status: []Eye contact is good. Motor activity is appropriate. Appearance is casual. Speech is appropriate. Mood is anxious. Affect is congruent. Thoughts are linear and logical. No evidence of psychosis. Client Response/Progress/Benefit: []Client was attentive and remained an active participant in group discussion. Group identified various types of self-care which included spiritual, physical, emotional, social, financial, psychological, and professional. Client did well to reflect upon what she is currently doing in each self-care category and identify areas she can improve to promote balance. She discussed feeling most confident in the area of physical self-care. Shared what she is currently practicing in this area which included: eating healthy, drinking water, walking, going to medical checkups, and getting sleep. Benefited from assessing current self-care balance and developing strategies to increase self-care in areas she feels are lacking. Client identified wanting to work on improving her area of social self-care. Client would like to spend time with friends again and find a hobby. Recommended continued IOP tx to increase consistent application of healthy coping skills to manage anxiety.
--- NOTE | 2019-01-16 14:13 | BH.MDN_ITS ---
Multi-Disciplinary Note - Note 60-min Individual Time Started:: 12:20 Date: 01/16/19 Purpose of session/treatment goals addressed:: The purpose of this session was to address client's current symptoms, stressors, and intrusive thoughts. Another goal was to rehearse coping strategies to further reduce symptoms. Other topics included: radical acceptance and thought challenging. Eye Contact:: Good Motor Activity:: Appropriate Appearance:: Casual Speech:: Other - circumstantial Mood:: Anxious, Irritable, Dysthymic Affect:: Congruent - tearful throughout Thoughts:: Circular, No evidence of hallucinations/delusions noted Staff Interventions:: Therapist used open-ended questions and active listening to gather information on client?s emotions, symptoms, and stressors. Therapist helped client deescalate anxiety symptoms and provided emotional support. Therapist used cognitive restructuring techniques to combat client's distortions and catastrophizing thoughts. Therapist utilized radical acceptance to help client cope with external stressors and increase self-awareness of ways client exacerbates her medical issues. Therapist gave client homework to utilize distress tolerance skills and practice mindfulness. Client Response:: Client entered session tearful and highly anxious due to a medical concern. Client reported she has been feeling ?like crap? and client originally thought it was her estrogen pills, but she got confirmation that it is not. Client stated, ?I need to know what?s wrong.? Client reported ?I?m a level 10? and shared ?I?m tired of dealing with this every day, I?m just done.? Client began disqualifying her progress and was using distorted thinking. Client was initially not receptive to thought challenging or distress tolerance skills as shown by her report of ?I don?t want to think differently.? After further discussion and emotional validation, client became more receptive and aware of her distortions. Client able to acknowledge her predicting the future, disqualifying, and catastrophizing thoughts. Recognized that, in fact, she has made progress in increased socialization, use of mindfulness, and application of ?thoughts a thought.? Client has also engaged in less reassurance seeking. Client and therapist discussed radical acceptance and how anxiety is playing a role in client?s medical symptoms. Client has struggled with accepting this and often states ?it?s not all anxiety you know.? However, during session, client finally accepted that her anxiety is exacerbating her somatic symptoms. Client reported accepting this is ?huge for me.? Client reflected that when she is less anxious her somatic symptoms decrease. Client willing to utilize distress tolerance and mindfulness skills to cope with anxiety tonight. Risks/Concerns:: Client reports passive wishes such as if the lord took me it would be okay. Client denies any suicidal ideations, plan, or intent as of 01/16/19. Protective factors include family and marry. Future oriented througho ut session. Progress Toward Goals/Plan:: Client has demonstrated progress towards her treatment goals, as shown by her report of utilizing coping skills more frequently, less reassurance seeking behaviors, and increased socialization. Client entered session today ?at a level 10? for anxiety, due to fear of medical issues. Client was able to utilize skills during session and challenge her thoughts which helped client reduce anxiety to ?a 5 or 6.? Client's insight has improved as client reports the realization that ?my anxiety is contributing to my health.? Client shared she continues to have panic and ?terrible? moments, but client reports belief she is able to bounce back quicker and ?not let it ruin my whole day.? Client was willing practice strategies discussed today. Client continues to meet criteria for IOP as she symptoms of depression and anxiety that impact her daily functioning. Time Stopped:: 13:17
--- NOTE | 2019-01-20 09:06 | BH.SGPN.GN ---
Behaviors/Verbalizations/Mental Status: []Client alert and oriented, casually dressed and groomed. Eye contact good. Motor activity appropriate. Speech within normal limits. Affect congruent, mood euthymic, anxious. Thoughts linear, logical, no signs of hallucinations or delusions. Reviewed client?s symptom tracker, no risk for suicidal ideation, plan, or intent as of 01/20/19. Client Response/Progress/Benefit: []Client responded well to session, active participant and providing encouragement to peers. Client reports feeling ?anxious and confident? today. Client shared she went to the pool with her daughter and stayed for two hours. Client stated this is significant progress for her as she has not been able to be out in public places long. Client reported she used deep breathing which relaxed client. Client?s current stressor is that she drove the furthest she has drove in months, which client is proud of, but client ?cried all the way there and back.? Client shared she recognized that she may have pushed herself too much, but she was able to deescalate herself by spending time with her daughter after the drive. Client appeared to benefit from reflecting on her progress. Client to continue IOP to promote gains made in managing anxiety and further improve functioning.
--- NOTE | 2019-01-20 10:15 | BH.SGPN.GN ---
Behaviors/Verbalizations/Mental Status: []Client alert and oriented, casually dressed and groomed. Eye contact good. Motor activity appropriate. Speech within normal limits. Affect congruent, mood euthymic. Thoughts linear, logical, no signs of hallucinations or delusions. Client Response/Progress/Benefit: []Client responded well to session, actively contributing to discussion and providing supportive feedback to group. Client indicated connecting with the topic of cognitive distortions and reflected that she has struggled significantly with thought challenging in the past. Client reflected upon how her tendency to focus on the negatives has increased anxiety and depression for her in the past. Client did well to work with the group on defining the various types of cognitive distortions and their impact on mental health. Client reported connecting with distortions of black and white thinking, mental filtering, predicting the future, emotional reasoning, and catastrophizing. Client reported coming to IOP has helped her not think so black and white and acknowledge her gains. Appeared to benefit from increasing awareness of cognitive distortions and how they can impact emotions and behaviors. Progress noted in client?s increased ability to recognize personal use of distortions and application of coping skills to prevent crisis. Will continue IOP to promote mood stability and further decrease anxiety.
--- NOTE | 2019-01-24 09:00 | BH.SGPN.GN ---
Behaviors/Verbalizations/Mental Status: [] Eye contact is good. Motor activity is appropriate. Appearance is disheveled. Speech is Appropriate. Mood is anxious. Affect is congruent. Thoughts are linear and logical. No evidence of psychosis. Reviewed daily check in sheet and no reports of suicidal ideations or intent. Client Response/Progress/Benefit: [] Pt was an active participant in group discussion. Shared that her emotions for today is even-keeled. States that she is managing her anxiety more effectively in the AM and throughout the day. Reports that the evening continues to be a stuggle however has improved since starting IOP. Talked about being alone with her thoughts in the evening with little distractions. Group provided feedback with suggestions for the evening. Insight into cause of anxiety however has not taken any steps to make her evening more manageable. Utilizing skills with moderate improvement in anxiety. Increased functioning. Increased consistency with skills per pt report. Progress noted per pt. Benefited from group feedback, encouragment, and support. Will continue in IOP to main gains, prevent decompensation, and transition to aftercare. Plan to discharge this week. Narrative Note: []
--- NOTE | 2019-01-24 11:17 | BH.SGPN.GN ---
Behaviors/Verbalizations/Mental Status: []Client alert and oriented, casually dressed and groomed. Eye contact good. Motor activity appropriate. Speech within normal limits. Affect constricted, mood euthymic. Thoughts linear, logical, no signs of hallucinations or delusions. Client Response/Progress/Benefit: []Client responded well to session, attentive throughout and providing to discussion. Client appeared to connect with the activity from second group and helped the group identify benefits of having a strong foundation of internal and external coping skills. Client helped the group discuss the different categories of coping skills and provided examples. Client reported she tries to use a variety of coping skills, but client struggle with using self-love. Client created a coping skills ?menu? for the five categories of coping skills. Client selected volunteering, journaling, earthing, hanging up post it notes with positive quotes, and writing out her negative thoughts as her coping skills to try. Client appeared to benefit from increasing her repertoire of healthy coping skills. Client demonstrating progress as shown by her generalization of coping skills and improved mood stability. Client will continue IOP to further reduce anxiety and improve daily functioning.
--- NOTE | 2019-01-25 09:01 | BH.SGPN.GN ---
Behaviors/Verbalizations/Mental Status: [Eye contact is good. Motor activity is appropriate. Appearance is casual, grooming appropriate. Speech is Appropriate rate and tone. Mood is anxious, irritable. Affect is congruent. Thoughts are linear and logical. No evidence of psychosis. Reviewed daily check in sheet and pt SI at a 2/5, denies plan, or intent. This is consistent with pt baseline and pt indicates ability to maintain safety at this time. ] Client Response/Progress/Benefit: [Pt responded well to session, engaged throughout and open to processing with the group. Pt indicated current emotion as ?anxious and irritated? and discussed that this is due to waking up in a bad mood. Able to identify potential skills for improving overall mood and receptive of feedback from group. Pt indicated her current mental health wins include being able to stay home alone for over an hour without struggling with overwhelming intrusive thoughts or escalating to panic. Noted using her DBT book and devotionals to aid in maintaining stability. Additional win identified as visiting her daughter and grand-daughter as a means of getting out of the house. Pt progress in self-report of increasing consistency of coping skill application, as well as reduced anxiety. Pt recommended continued IOP tx to prevent decompensation, and promote ongoing application of healthy coping skills, and improve mood stability.] Narrative Note: []
--- NOTE | 2019-01-25 10:17 | BH.SGPN.GN ---
Behaviors/Verbalizations/Mental Status: []Client alert and oriented, casually dressed and groomed. Eye contact good. Motor activity appropriate. Speech within normal limits. Affect congruent, mood euthymic. Thoughts linear, logical, no signs of hallucinations or delusions. Client Response/Progress/Benefit: []Client participated in group discussion and worksheet activity. Worked together with the group to define a crisis and discuss examples of crisis situations. Client helped the group explore how coping with crisis in unhealthy ways can lead to a mental health crisis. Client stated one can prevent external crises from turning into internal crises by recognizing early warning signs and using coping skills. Client shared in the past she did not recognize warning signs and ?had a total mental breakdown.? Group identified warning signs one could have which included; self-harm, drinking or drugs, increased sleep, avoidance, procrastination, shutting down, change in eating, poor work performance, difficulty completing daily tasks, and racing thoughts. Client completed her own personal warning signs worksheet. Client identified her top three crisis warning signs to be eating less, lack of concentration, and lack of motivation. Benefited from group by increasing awareness of crisis and personal warning signs. Progress noted as client reports increased ability to cope with anxiety and improving daily functioning.
--- NOTE | 2019-01-25 14:24 | BH.COMM_ITS ---
Communication Note - Communication with Client Communication Note: Therapist called client's outpatient counselor for con tinuity of care purposes and to provide discharge updates. Unable to reach outpatient therapist and left a message.
--- NOTE | 2019-01-27 07:19 | BH.AFTERPLAN ---
Aftercare Plan - Demographics Treatment End Date:: 01/27/19 Psychiatrist:: Elenita Garcia Psychiatrist Office #:: [phone] [facility] Therapist:: Sarah Brantley Therapist Phone #:: [phone] - Medications Home Medications: Home Medications Acetaminophen/Butalbital/Caffe [Fioricet] 1 tab PO Q2H PRN PRN 08/26/18 alprazolam 0.5 mg tablet 0.25 mg PO PRN PRN 10 Days #30 tab 11/18/18 estradiol 0.5 mg tablet 0.25 mg PO DAILY #30 tab 01/27/19 nadolol 20 mg tablet 10 mg PO BID #30 tab 01/27/19 - Plan Details Progress/Aftercare Plan Details:: Tiffanie has made great strides in improving her mental health from day one in [facility] to discharge. Tiffanie has been able to increase her awareness of negative, intrusive thoughts and she has learned how to manage them more effectively. Not only has Tiffanie improved her self-awareness, but she has been actively applying coping skills as well. Tiffanie is able to recognize that thoughts are thoughts not facts which has helped her better manage intrusive thoughts about her health. Tiffanie has been more social as she has been getting out her house to go to congregational and spend time with her family. Tiffanie has made great strides in driving more often. Tiffanie has been using mindfulness and thought challenging to manage daily stressors. Tiffanie recognizes that progress is not linear, and that one bad day or moment does not have to lasting effects. Tiffanie plans to continue outpatient counseling with Bennett Beck at [facility]. Tiffanie also would like to explore [facility]ism based counseling and plans to do an intake at [facility]. Tiffanie does not need psychiatry services at this time, but she has [facility] should she need it in the future. Strategies for Success:: 1. Thoughts are thoughts NOT facts! 2. BREATHE! Remember to deep breathe throughout the day. 3. Progressive muscle relaxation. Use when you recognize the warning signs. 4. You're allowed to have emotions! Your emotions are valid! Remember to take care of them and let them pass. 5. Reach out to your supports - family, congregational, [facility], an counseling. 6. Radical acceptance. 7. balance! Remember to engage in self-care! All areas, not just physical. 8. Challenge the negative thoughts that creep up! And remember that this too shall pass. 9. Build up support and find things that bring you issa. 10. Give yourself credit! You've come SO FAR!! Great work!! - Appointments Appointments/Referrals to Other Services:: 1. Follow up with Bennett Beck at [facility]. Next appointment is 02/03/19 at 9:00am in [place]. 2. Follow up with [facility]. Next appointment is 02/01/19 at 10:00am. 3. Follow up with ongoing medical appointments. 4. [facility] 5. Psychiatry option at [facility] should you need it in the future.
--- NOTE | 2019-01-30 15:10 | BH.DS ---
Discharge Summary - Demographics Date of Admission:: 12/06/18 Discharge Date: 01/30/19 Presenting Problems at Admission:: Client is a 53-year-old female with a history of anxiety and depression. At admission, client reported ongoing difficulty managing her anxiety symptoms, especially regarding health conditions, which resulted in impaired daily functioning. Client had a hospitalization in July 2018 at [facility] in [place] due to worsening symptoms. Client was referred to [facility] by her outpatient therapist and nurse office due to increased anxiety as well as decompensation of social, familial, and occupational functioning. At admission, client endorsed daily anxiety, panic attacks, decreased appetite, difficulty concentrating, crying spells, hopelessness, and fear of driving. Client was overwhelmed with intrusive thoughts about her heart and her health. Client had been isolating and researching her symptoms online which only reinforced her anxiety. Client was not able to complete her ADLs and was not able to function at her baseline. 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 Client no longer meets criteria for [facility] level of care. - Treatment Progress During Treatment & Response: Client has responded well to [facility] and shown significant progress towards treatment goals. Throughout her time in [facility], client was an attentive group member who often took notes and made connections with topics during sessions. Client had good attendance and provided support to peers. During individual sessions, client was receptive to feedback, psychoeducation, and thought challenging. Client was also receptive to gentle challenging from therapist. Client?s application of coping skills and motivation to improve her mental health are likely the cause of her significant progress. Client reports improved mood, reduced isolation, less reassurance seeking, active use of thought challenging, decreased intrusive thoughts, and improved ability to cope with mental health symptoms despite ongoing stressors. Client reports she still has bad days, but client reports belief she has improved with bouncing back quicker. At discharge, client had been getting out of her house and engaging with supports on a more consistent basis. Client also reports better emotional regulation which has helped her manage stress and start driving some again. Client?s DSM-5 scores went from 49 at admission to 23 at discharge. Client?s scores for depression went from 6/8 at admission, to 5/8 at discharge. Client?s DSM-5 scores for anxiety reduced from 11/12 to 6/12 at discharge. Issues Still to be Addressed:: Client has made great strides in improving her mental health and daily functioning and can continue to benefit from ongoing counseling to promote gains. Client can benefit from reinforcing healthy coping skills to manage anxiety, intrusive thoughts, and depression. Client recognizes she can improve her social network and reports wanting to find hobbies and interests. Client reported she feels ready to dig up my past and wants to engage in trauma-focused counseling. Lastly, client can continue working on using radical acceptance, challenging negative thoughts, and improving distress tolerance. Discharge Recommendations/Instructions:: Client is recommended to follow up with her outpatient counselor for ongoing individual therapy. Client sees Bennett Beck at [facility] and her next appointment is 02/03/19. Client also has an intake at [facility] as she reported wanting to explore marry-based counseling. Client has an intake appointment on 02/01/19. Client is not currently in need of psychiatric services, but client was provided with resources should she need it in the future. Lastly, client is recommended to continue following up with her medical providers for continuity of care. Discharge Handout: Complete Discharge Handout with client on aftercare options and continuity of care.
--- NOTE | 2019-01-30 15:11 | BH.MDN ---
Multi-Disciplinary Note - Note 30-min Individual Time Started:: 09:15 Date: 01/30/19 Purpose of session/treatment goals addressed:: The purpose of this session was to review client's progress and review strategies that will promote mood stability and gains made in [facility]. Another goal was to discuss discharge recommendations. Eye Contact:: Good Motor Activity:: Appropriate Appearance:: Casual Speech:: Appropriate Mood:: Dysthymic Affect:: Congruent Thoughts:: Linear, Logical, No evidence of hallucinations/delusions noted Staff Interventions:: Therapist used open-ended questions to explore client's thoughts on personal progress. Therapist reviewed supports, warning signs, and coping skills with client to promote gains and prevent setbacks. Therapist discussed aftercare plan with client and used strengths-perspective to empower client on the goals client has accomplished. Therapist discussed the benefits of ongoing maintenance and use of daily coping skills. Therapist gave client a quote collage for closure. Client Response:: Client responded well to session, open to meeting with therapist. Client stated she had a challenging weekend due to a migraine, but she was able to use coping skills to help herself. Client reported she has learned a lot since coming to [facility] and was able to reflect on the progress she has made. Client shared she has progressed in reframing her thoughts and managing her anxiety. Client reported she still has bad days, but client reports belief she is managing better on her bad days. Client acknowledged that her thinking and outlook on life have changed which has helped client catastrophize less. Client shared I can actually hear other people's problems now and not freak out. Client able to identify warning signs, triggers, and coping skills to help promote gains made in [facility]. Client identified coping skills such as; radical acceptance, deep breathing, progressive muscle relaxation, thoughts are thoughts not facts, reaching out to support, and self-validation. Client reports plan to follow up with outpatient counseling and client would like to attend [facility] for additional support. Risks/Concerns:: Client denies any suicidal ideations, plan, or intent as of 01/30/19. Progress Toward Goals/Plan:: Client to discharge from [facility] today as she has made significant progress towards her treatment goals. Client?s DSM-5 symptoms have decreased by 26 points and she reports improved ability to cope with anxiety and depression. Client identified personal progress in improved outlook, being more social, reduced anxiety, and challenging negative thoughts. Client reports plan to follow up with Bennett Beck at [facility] for outpatient counseling and she has an intake at [facility] as client would like to explore marry-based counseling. Time Stopped:: 09:45
== END 2019-01-30 11:00 | disposition home or self-care (01) ==
LOC: BHIOP 09:00
PROVIDERS: Family Provider Family Medicine; PCP Family Medicine; Referring Provider Psychiatry & Neurology Psychiatry; Visit Provider Psychiatry & Neurology Psychiatry
DX: F33.9 Major depressive disorder, recurrent, unspecified (principal); F41.9 Anxiety disorder, unspecified; F45.1 Undifferentiated somatoform disorder
CPT/HCPCS: H0035; 90837; 90853

== ENCOUNTER → 2019-02-03 | Outpatient (REF) | payer OTHER, SELFPAY ==
[2019-01-27 08:52] VITALS: BMI 25.6
== END | disposition home or self-care (01) ==
LOC: CVS 10:57
PROVIDERS: Family Provider Family Medicine; PCP Family Medicine; Referring Provider Internal Medicine Cardiovascular Disease; Visit Provider Internal Medicine Cardiovascular Disease
DX: R00.2 Palpitations (principal)
CPT/HCPCS: 93270

== ENCOUNTER → 2019-05-01 | Outpatient (CLI) | payer OTHER, MEDICAID, SELFPAY ==
[2019-01-27 08:52] VITALS: BMI 25.6
--- NOTE | 2019-05-01 08:51 | ECHOD_ITS ---
Reason For Study: arrhythmia Procedure This was a 2D Doppler, Color Flow transthoracic echocardiogram. Exam performed in department. Left Ventricle Normal LV size. Left ventricular systolic function is normal. The estimated ejection fraction is 65 %. Stage 2 diastolic dysfunction. No regional wall motion abnormalities noted. Right Ventricle Normal RV size. Normal systolic function. Atria Normal left atrium. Normal right atrium. Mitral Valve Normal mitral valve. Mild (1+) eccentric mitral valve insufficiency. Tricuspid Valve Normal tricuspid valve. Mild tricuspid valve insufficiency. Aortic Valve Trisinus/trileaflet aortic valve. Mild (1+) eccentric aortic valve insufficiency. Pulmonic Valve Normal pulmonic valve. Great Vessels Normal aortic root. The pulmonary artery is normal size. Normal inferior vena cava. Pericardium/Pleural No pericardial effusion. MMode/2D Measurements & Calculations LVIDd: 4.9 cm IVSd: 0.69 cm Ao root diam: 3.5 cm LVIDs: 3.5 cm LVPWd: 0.83 cm RVDd: 3.3 cm FS: 28.7 % LAV(MOD-bp): 36.3 ml LA A4 area: 13.6 cm2 LA dimension(2D): 3.5 cm LAV(MOD-bp) Indexed: 22.3 ml/m2 LAV(MOD-sp2): 44.0 ml LAV(MOD-sp4): 29.5 ml RA A4 area: 11.9 cm2 Time Measurements MV dec time: 0.17 sec Doppler Measurements & Calculations MV E max dm: 83.5 cm/sec Lat Peak E' Dm: 6.5 cm/sec Med Peak E' Dm: 4.8 cm/sec MV A max dm: 70.6 cm/sec E/E' lat: 12.9 E/E' med: 17.5 MV E/A: 1.2 Ao V2 max: 116.4 cm/sec AI max dm: 375.6 cm/sec LV V1 max: 104.3 cm/sec Ao max P.4 mmHg AI max P.6 mmHg LV V1 max P.4 mmHg Ao V2 mean: 81.0 cm/sec AI dec slope: 127.6 cm/sec2 LV V1 mean P.2 mmHg Ao mean P.9 mmHg AI P1/2t: 862.0 msec LV V1 mean: 69.4 cm/sec Ao V2 VTI: 27.3 cm LV V1 VTI: 24.7 cm TR max dm: 217.2 cm/sec TR max P.9 mmHg Interpretation Summary Normal LV size. Left ventricular systolic function is normal. The estimated ejection fraction is 65 %. Stage 2 diastolic dysfunction. Mild (1+) eccentric mitral valve insufficiency. Mild (1+) eccentric aortic valve insufficiency. Ordering Physician: Olvin Painting Referring Physician: PILO UNGER Performed By: Elsy Pak, ROOSEVELTCS, RVT
== END | disposition home or self-care (01) ==
LOC: CVS 08:50
PROVIDERS: Family Provider Family Medicine; PCP Family Medicine; Referring Provider Internal Medicine Cardiovascular Disease; Visit Provider Internal Medicine Cardiovascular Disease
DX: I49.9 Cardiac arrhythmia, unspecified (principal); R00.2 Palpitations
CPT/HCPCS: 93306

== ENCOUNTER → 2022-02-18 | Outpatient (CLI) | payer MEDICAID, SELFPAY ==
--- NOTE | 2022-02-18 16:41 | STRESSREP ---
Stress Test Report Exercise stress test. 56-year-old lady with a history of chest pain. Stress protocol: Resting EKG demonstrates normal sinus rhythm with a rate of 62 bpm normal intervals are noted resting blood pressure is 122/68 mmHg. The patient exercised according to regular Teofilo protocol for total duration of 9 minutes and 30 seconds. The maximum heart rate attained was 144 bpm which was 86% of max impacted heart rate the maximum workload was 11.7 metabolic equivalents. The patient maintained sinus rhythm throughout the recording. At rest there were no ST or T wave changes noted suggest ischemia and at peak exercise upsloping changes were noted with did not meet the criteria for ischemia. No clinical angina was noted the test was terminated due to the target heart rate being achieved. Rate-pressure product was 16,900. Conclusion: Exercise stress test with no EKG criteria for ischemia at a high workload. No clinical angina noted.
== END | disposition home or self-care (01) ==
PROVIDERS: PCP Physician Assistant; Visit Provider Nurse Practitioner Family
DX: R07.9 Chest pain, unspecified (principal); R00.2 Palpitations; E78.5 Hyperlipidemia, unspecified
CPT/HCPCS: 93017

== ENCOUNTER → 2022-07-16 | Outpatient (CLI) | payer MEDICAID, SELFPAY ==
[2022-07-16 11:27] LABS: Absolute Lymphocyte Count 1.44 X10^3/uL (0.83-4.51); Absolute Neutrophil Count 3.9 X10^3/uL (2.0-7.7); Basophil# 0.03 X10^3/uL; Basophil% 0.5 % (0-1); Eosinophil# 0.08 X10^3/uL; Eosinophils% 1.4 % (0-5); Hematocrit 44.8 % (37-47); Hemoglobin 14.5 g/dL (12.0-15.0); Lymphocyte # 1.44 X10^3/ul (0.83-4.51); Lymphocyte % 24.6 % (19-41); Mean Corp Hgb Conc 32.4 g/dL (32-36); Mean Corpuscular Hgb 28.8 pg (27.0-32.0); Mean Corpuscular Volume 88.9 fL (81-99); Mean Platelet Vol. 10.2 fl (6.2-12.0); Monocyte# 0.35 X10^3/uL; NRBC Flagged by Analyzer 0 % (0-5); Neutrophil # 3.92 X10^3/uL (2.7-7.7); Neutrophil % 66.8 % (47-70); Platelet Count 247 K/mm3 (150-450); RBC Distribution Width CV 12.6 % (11.6-14.6); RBC Distribution Width SD 40.8 fl (35.1-43.9); Red Blood Count 5.04 M/mm3 (4.2-5.4); White Blood Count 5.9 K/mm3 (4.4-11.0)
[2022-07-16 11:56] LABS: BNP,B-Type NATRIURETIC PEPTIDE 4.8 pg/mL (0-100)
[2022-07-16 12:17] LABS: Anion Gap 7 (5-15); BUN 12 mg/dL (7-18); BUN/Creat Ratio 17.5 RATIO (10-20); Calcium,Total 9.3 mg/dL (8.5-10.1); Chloride 107 mmol/L (98-107); Creatinine, Serum 0.69 mg/dL (0.55-1.02); EST Glomerular Filtration Rate 95 mL/min (>60); Est Glom Filt Rate - Afr Amer 114 mL/min (>60); Free T3 2.6 pg/mL (2.18-3.98); Glucose 131 mg/dL (74-106); Magnesium 2.1 mg/dL (1.6-2.6); Sodium Level 140 mmol/L (136-145); T4 Free Direct 0.94 ng/dL (0.76-1.46); Thyroid Stim Hormone (TSH) 1.84 uIU/mL (0.358-3.74)
== END | disposition home or self-care (01) ==
LOC: LAB 09:22
PROVIDERS: PCP Physician Assistant; Referring Provider Nurse Practitioner Gerontology; Visit Provider Nurse Practitioner Gerontology
DX: R06.09 Other forms of dyspnea (principal); R53.83 Other fatigue
CPT/HCPCS: 36415; 80048; 83735; 83880; 84439; 84443; 84481; 85025

== ENCOUNTER → 2022-07-23 | Outpatient (CLI) | payer MEDICAID, SELFPAY ==
--- NOTE | 2022-07-23 14:00 | ECHOD_ITS ---
Reason For Study: DYSPNEA/SOB Procedure This was a 2D Doppler, Color Flow transthoracic echocardiogram. Exam performed in department. Left Ventricle Normal LV size. Left ventricular systolic function is normal. The estimated ejection fraction is 70 %. No regional wall motion abnormalities noted. Right Ventricle Normal RV size. Normal systolic function. Atria Normal left atrium. Normal right atrium. Mitral Valve Normal mitral valve. Tricuspid Valve Normal tricuspid valve. Aortic Valve Normal aortic valve. Trisinus/trileaflet aortic valve. Pulmonic Valve Normal pulmonic valve. Great Vessels Normal aortic root. The pulmonary artery is normal size. Normal inferior vena cava. Pericardium/Pleural No pericardial effusion. MMode/2D Measurements & Calculations LVIDd: 5.1 cm IVSd: 0.83 cm Ao root diam: 3.8 cm LVIDs: 3.2 cm LVPWd: 0.90 cm RVDd: 3.2 cm FS: 37.1 % LAV(MOD-bp): 36.4 ml LVAd ap4: 27.6 cm2 LVAd ap2: 23.6 cm2 LAV(MOD-bp) Indexed: 21.8 ml/m2 LVLd ap4: 7.3 cm LVLd ap2: 7.6 cm LAV(MOD-sp2): 35.6 ml EDV(MOD-sp4): 85.4 ml EDV(MOD-sp2): 64.1 ml LAV(MOD-sp4): 34.4 ml EDV(sp4-el): 88.7 ml EDV(sp2-el): 62.5 ml LVAs ap4: 13.5 cm2 LVAs ap2: 9.8 cm2 LVLs ap4: 5.4 cm LVLs ap2: 5.1 cm ESV(MOD-sp4): 28.6 ml ESV(MOD-sp2): 17.2 ml ESV(sp4-el): 28.4 ml ESV(sp2-el): 15.9 ml EF(MOD-sp4): 66.5 % EF(MOD-sp2): 73.2 % EF(sp4-el): 68.0 % SV(MOD-sp4): 56.8 ml SV(MOD-sp2): 46.9 ml SV(sp4-el): 60.3 ml LA dimension(2D): 4.0 cm LA A4 area: 13.8 cm2 RA A4 area: 9.6 cm2 Time Measurements MV dec time: 0.21 sec Doppler Measurements & Calculations MV E max dm: 77.9 cm/sec Lat Peak E' Dm: 7.3 cm/sec Med Peak E' Dm: 6.8 cm/sec MV A max dm: 83.4 cm/sec E/E' lat: 10.7 E/E' med: 11.5 MV E/A: 0.93 MV dec slope: 373.3 cm/sec2 Ao V2 max: 119.3 cm/sec AI max dm: 294.2 cm/sec Ao max P.7 mmHg AI max P.6 mmHg Ao V2 mean: 83.2 cm/sec AI dec slope: 152.1 cm/sec2 Ao mean P.1 mmHg AI P1/2t: 566.5 msec Ao V2 VTI: 29.6 cm AV (velocity ratio): 0.73 LV V1 max: 94.6 cm/sec PA V2 max: 86.9 cm/sec TR max dm: 209.6 cm/sec LV V1 max P.6 mmHg TR max P.6 mmHg LV V1 mean P.8 mmHg LV V1 mean: 61.5 cm/sec LV V1 VTI: 21.6 cm ECHO/Echo Complete Interpretation Summary Normal LV size. Left ventricular systolic function is normal. The estimated ejection fraction is 70 %. Structurally normal valves. Ordering Physician: Herlinda Galicia Referring Physician: Agnes Wright Performed By: Angelique Dalton RDCS, RVT
== END | disposition home or self-care (01) ==
LOC: CVS 13:59
PROVIDERS: PCP Physician Assistant; Referring Provider Nurse Practitioner Gerontology; Visit Provider Nurse Practitioner Gerontology
DX: R06.09 Other forms of dyspnea (principal); R06.02 Shortness of breath
CPT/HCPCS: 93306

== ENCOUNTER → 2023-05-19 | Outpatient (CLI) | payer MEDICAID, SELFPAY ==
--- NOTE | 2023-05-21 07:55 | PFTCOMP_ITS ---
COMPLETE PULMONARY FUNCTION TEST INTERPRETATION Brief HPI: Patient is a 57-year-old female, currently under the care of Herlinda Galicia, who presents to [facility] for complete pulmonary function tests secondary to diagnosis of dyspnea. Respiratory therapist reports good effort and reproducible results. Interpretation: Forced expiration spirometry shows no large airways obstructive ventilatory defect with an FEV1 of 100% predicted. There is no significant bronchodilator response by strict ATS criteria. Spirograms are of good quality and plateau normally. The respiratory flow volume loop shows a normal pattern. Lung volumes by body plethysmography show a normal total lung capacity at 4.56 L, 99% predicted. All other lung volumes are within normal limits. Diffusion capacity by carbon monoxide is normal at 83% predicted. The airway resistance is normal. No previous pulmonary function tests were available for review. Impression: These pulmonary function tests are within normal limits
== END | disposition home or self-care (01) ==
LOC: PSN 08:12
PROVIDERS: PCP Physician Assistant; Referring Provider Nurse Practitioner Gerontology; Visit Provider Nurse Practitioner Gerontology
DX: R06.09 Other forms of dyspnea (principal)
CPT/HCPCS: 94060; 94726; 94729

== ENCOUNTER → 2024-07-10 | Outpatient (CLI) | payer OTHER, SELFPAY ==
--- NOTE | 2024-07-10 14:31 | STRESSREP ---
Stress Test Report Exercise myocardial perfusion stress test. 58-year-old lady with a history of chest pain Stress protocol: Resting EKG demonstrates normal sinus rhythm with a rate of 67 bpm resting blood pressure is 138/78 mmHg. The patient exercised according to the regular Teofilo protocol for a total duration of 7 minutes attaining a maximum heart rate of 148 bpm which was 90% of maximum predicted heart rate; the maximum workload was 10.1 metabolic equivalents. At rest there were no ST or T wave changes noted to suggest ischemia and at peak exercise upsloping ST changes only were noted which did not meet the criteria for ischemia. No clinical angina was noted the test was terminated due to the target heart rate being achieved/fatigue. The peak blood pressure was 158/70 mmHg. Rate-pressure product was 21,600. Myocardial perfusion protocol. 11.5 mCi of technetium 99m sestamibi was injected at rest. The patient exercised according to regular Teofilo protocol for total duration of 7 minutes and at peak exercise 34.8 mCi of technetium 99m sestamibi was injected stress images were obtained stress and rest images were reconstructed in comparing the short axis vertical long and horizontal long axis. Gated images were also obtained. Perfusion SPECT analysis: Review of the stress images demonstrate normal uptake of tracer noted in all areas of the myocardium. The resting images similarly demonstrate normal uptake of tracer noted in all areas of the myocardium. No areas of reversibility are noted to suggest ischemia no previous infarct was noted. Gated SPECT analysis: The gated ejection fraction is 69%. Conclusion: Normal exercise myocardial perfusion stress test at a high workload Preserved ejection fraction.
== END | disposition home or self-care (01) ==
LOC: CVS 06:11
PROVIDERS: PCP Physician Assistant; Referring Provider Physician Assistant Medical; Visit Provider Physician Assistant Medical
DX: R94.31 Abnormal electrocardiogram [ECG] [EKG] (principal); R07.9 Chest pain, unspecified
CPT/HCPCS: 78452; 93017; A9500; A4216